=== PATIENT | male | born 1950 | race American Indian/Alaskan Native ===

== ENCOUNTER 2018-04-09 12:47 | Inpatient (IN) | payer MEDICARE ==
[2018-04-09] MEDS ORDERED: NACL 0.9% 1000 ML IV ONE (14:24)
--- NOTE | 2018-04-09 14:30 | Emergency Department Report ---
Blank Doc - Documentation Documentation: Patient is a 67-year-old black male who is presenting with cough productive of sputum that has streaks of blood. Patient states he occasionally will have completely bloody sputum. Patient states he has some mild shortness of breath and some discomfort when he breathes. Edson and is on blood thinners secondary to some issues with his liver. Patient has a low-grade fever and denies nausea vomiting or diarrhea.. Patient to be moved to a treatment room. Patient is tachycardic with fever and a pneumonia on his x-ray before does meet sepsis criteria. Patient is awaiting blood work to see if he has severe sepsis.
[2018-04-09] MEDS ORDERED: TYLENOL PO ONE (14:32)
--- NOTE | 2018-04-09 14:48 | XRay Report ---
ROUTINE CHEST, TWO VIEWS: HISTORY: Persistent cough with blood and mucus. There is an ill-defined opacity in the lingula measuring approximately 5 cm in diameter. The etiology of this is unclear. This could represent an infiltrate or possibly a mass. The remainder of the lungs are clear. Normal heart and mediastinal structures. The bony thorax is grossly intact. IMPRESSION: Lingular opacity as described. If no fever is present, further evaluation with CT chest with contrast is recommended.
[2018-04-09 14:57] LABS: INR 1.1 (0.87-1.13); Partial Thromboplastin Time 26.4 Sec. (24.2-36.6)
[2018-04-09 15:04] LABS: BUN/Creatinine Ratio 10; Blood Urea Nitrogen 5 mg/dL (9-20); Calcium 8.9 mg/dL (8.4-10.2); Hemolysis Index 8
[2018-04-09 15:26] LABS: Hematocrit 34.2 % (35.5-45.6); Hemoglobin 11.1 gm/dl (11.8-15.2); Mean Corpuscular HGB Conc 32 % (32-34); Mean Corpuscular Volume 95 fl (84-94); Platelet Count 218 K/mm3 (140-440); Red Blood Count 3.61 M/mm3 (3.65-5.03); Red Cell Distribution Width 14.7 % (13.2-15.2)
[2018-04-09] MEDS: ROCEPHIN/NS 2 GM/100 ML 2 GM/100 ML BAG IV SCH (15:32)
--- NOTE | 2018-04-09 15:34 | Emergency Department Report ---
- General Chief Complaint: Upper Respiratory Infection Stated Complaint: COUGHING UP BLOOD Time Seen by Provider: 04/09/18 14:19 Source: patient, old records reviewed (no previous med record) Mode of arrival: Ambulatory Limitations: No Limitations - History of Present Illness Initial Comments: 67-year-old male with a past medical history of hypertension and liver cirrhosis secondary to hepatitis C presents to the hospital complains of persisting cough with hemoptysis for the past 7 days. Sputum is blood streaks and occasionally grossly bloody. Intermittent fever and shortness of breath reported. Patient states he also has intermittent epistaxis. Patient is taking unknown meds for his liver disease. He is typically followed at [place]. Pain equals 0. - Related Data Allergies Allergy/AdvReac Type Severity Reaction Status Date / Time No Known Allergies Allergy Unverified 04/09/18 13:01 ED Review of Systems ROS: Stated complaint: COUGHING UP BLOOD Other details as noted in HPI Comment: All other systems reviewed and negative ED Past Medical Hx - Past Medical History Hx Hypertension: Yes Additional medical history: cirrohsis, hep c - Surgical History Additional Surgical History: right lower lobe? pt not sure - Social History Smoking Status: Current Every Day Smoker Substance Use Type: Alcohol ED Physical Exam - General Limitations: No Limitations - Other Other exam information: General: No limitations, patient is alert in no acute distress Head exam: Atraumatic, normocephalic Eyes exam: Normal appearance ENT: Moist mucous membrane Neck exam: Normal inspection, full range of motion, no meningismus nontender Respiratory exam: Clear to auscultation bilateral, no wheezes, rales, crackles Cardiovascular: Tachycardic regular rhythm Abdomen: Soft, nondistended, and nontender, with normal bowel sounds, no rebound, or guarding Extremity: Full range of motion normal inspection no deformity Back: Normal Inspection, full range of motion, no tenderness Neurologic: Alert, oriented x3, cranial nerves intact, no motor or sensory deficit Psychiatric: normal affect, normal mood Skin: Warm, dry, intact ED Course Vital Signs 04/09/18 04/09/18 12:58 15:33 Temperature 100.1 F H 98.4 F Pulse Rate 127 H 91 H Respiratory 20 23 Rate Blood Pressure 145/92 Blood Pressure 138/66 [Right] O2 Sat by Pulse 97 98 Oximetry ED Medical Decision Making - Lab Data Result diagrams: 04/09/18 14:38 04/09/18 14:38 Lab Results 04/09/18 04/09/18 04/09/18 Range/Units 14:38 14:38 14:38 WBC 12.3 H (4.5-11.0) K/mm3 RBC 3.61 L (3.65-5.03) M/mm3 Hgb 11.1 L (11.8-15.2) gm/dl Hct 34.2 L (35.5-45.6) % MCV 95 H (84-94) fl MCH 31 (28-32) pg MCHC 32 (32-34) % RDW 14.7 (13.2-15.2) % Plt Count 218 (140-440) K/mm3 PT 14.6 (12.2-14.9) Sec. INR 1.10 (0.87-1.13) APTT 26.4 (24.2-36.6) Sec. VBG pH (7.320-7.420) Sodium 135 L (137-145) mmol/L Potassium 3.6 (3.6-5.0) mmol/L Chloride 98.9 (98-107) mmol/L Carbon Dioxide 23 (22-30) mmol/L Anion Gap 17 mmol/L BUN 5 L (9-20) mg/dL Creatinine 0.5 L (0.8-1.5) mg/dL Estimated GFR > 60 ml/min BUN/Creatinine Ratio 10 % Glucose 116 H (75-100) mg/dL Lactic Acid (0.7-2.0) mmol/L Calcium 8.9 (8.4-10.2) mg/dL 04/09/18 04/09/18 Range/Units 14:38 14:38 WBC (4.5-11.0) K/mm3 RBC (3.65-5.03) M/mm3 Hgb (11.8-15.2) gm/dl Hct (35.5-45.6) % MCV (84-94) fl MCH (28-32) pg MCHC (32-34) % RDW (13.2-15.2) % Plt Count (140-440) K/mm3 PT (12.2-14.9) Sec. INR (0.87-1.13) APTT (24.2-36.6) Sec. VBG pH 7.376 (7.320-7.420) Sodium (137-145) mmol/L Potassium (3.6-5.0) mmol/L Chloride (98-107) mmol/L Carbon Dioxide (22-30) mmol/L Anion Gap mmol/L BUN (9-20) mg/dL Creatinine (0.8-1.5) mg/dL Estimated GFR ml/min BUN/Creatinine Ratio % Glucose (75-100) mg/dL Lactic Acid 1.70 (0.7-2.0) mmol/L Calcium (8.4-10.2) mg/dL - EKG Data -: EKG Interpreted by In EKG shows normal: sinus rhythm, axis (qrs 29), QRS complexes (qrsd 89), ST-T waves (no stemi/t inv, multiple pvc's) Rate: normal (93) - EKG Data When compared to previous EKG there are: previous EKG unavailable - Radiology Data Radiology results: report reviewed ROUTINE CHEST, TWO VIEWS: HISTORY: Persistent cough with blood and mucus. There is an ill-defined opacity in the lingula measuring approximately 5 cm in diameter. The etiology of this is unclear. This could represent an infiltrate or possibly a mass. The remainder of the lungs are clear. Normal heart and mediastinal structures. The bony thorax is grossly intact. IMPRESSION: Lingular opacity as described. If no fever is present, further evaluation with CT chest with contrast is recommended. - Medical Decision Making Patient had cultures performed and pending, 30 mL per KG bolus of normal saline, and Rocephin and azithromycin given for pneumonia with associated sepsis. Patient will be admitted to the hospital for further evaluation. Case discussed with hospitalist Dr. Angeles - Differential Diagnosis sepsis, pneumonia, bronchitis, cancer Critical Care Time: No Critical care attestation.: If time is entered above; I have spent that time in minutes in the direct care of this critically ill patient, excluding procedure time. ED Disposition Clinical Impression: Cirrhosis, Hx of hepatitis C, Hemoptysis, Sepsis Pneumonia Qualifiers: Laterality: left Disposition: DC-09 OP ADMIT IP TO THIS HOSP Is pt being admited?: Yes Referrals: PRIMARY CARE,MD [Primary Care Provider] - 3-5 Days Time of Disposition: 15:36 (Dr Angeles/hosp)
[2018-04-09] MEDS: ZITHROMAX 500 MG in NACL 0.9% 250ML 250 ML IV SCH (16:55)
[2018-04-09] MEDS ORDERED: SODIUM CHLORIDE FLUSH SYRINGE 10 ML IV PRN (22:12)
[2018-04-09] MEDS ORDERED: TYLENOL PO PRN (22:12)
[2018-04-09] MEDS ORDERED: PERCOCET 5/325 PO PRN (22:12)
[2018-04-09] MEDS ORDERED: ZOFRAN IV PRN (22:12)
[2018-04-09] MEDS ORDERED: DILAUDID IV PRN (22:12)
[2018-04-09] MEDS ORDERED: RIBAVIRIN 200 MG PO SCH (22:15)
[2018-04-10 05:51] LABS: Basophils % (Auto) 0.2 % (0.0-1.8); Eosinophils % (Auto) 0.2 % (0.0-4.3); Hematocrit 30.8 % (35.5-45.6); Hemoglobin 10.1 gm/dl (11.8-15.2); Lymphocytes # (Auto) 0.7 K/mm3 (1.2-5.4); Lymphocytes % (Auto) 6.4 % (13.4-35.0); Mean Corpuscular HGB Conc 33 % (32-34); Mean Corpuscular Volume 94 fl (84-94); Monocytes # (Auto) 1.3 K/mm3 (0.0-0.8); Monocytes % (Auto) 12.8 % (0.0-7.3); Platelet Count 191 K/mm3 (140-440); Red Blood Count 3.26 M/mm3 (3.65-5.03); Red Cell Distribution Width 14.6 % (13.2-15.2)
[2018-04-10 06:16] LABS: Alanine Aminotransferase 9 units/L (7-56); Albumin 3.1 g/dL (3.9-5); BUN/Creatinine Ratio 12; Blood Urea Nitrogen 6 mg/dL (9-20); Calcium 8.6 mg/dL (8.4-10.2); Hemolysis Index 3
--- NOTE | 2018-04-10 06:44 | Event Note ---
Date: 04/09/18 See H/p in reports L lingular PNA Hep C on Treatment
[2018-04-10] MEDS ORDERED: MAGNESIUM SULFATE 2GM/50ML 2 GM/50 ML BAG IV ONE (07:00)
--- NOTE | 2018-04-10 07:28 | History and Physical Report ---
CHIEF COMPLAINT: 1. Cough for 7 days. 2. Blood in the sputum off and on for 7 days. HISTORY OF PRESENT ILLNESS: A 67-year-old male with history of cirrhosis and hep C, on treatment for hep C, comes in for cough and hemoptysis for 7 days. Blood streaks occasionally. Not gross amount of blood. Small amounts of blood in the cough. The patient is taking Harvoni for hepatitis C, ____, follows at [place]. PAST MEDICAL HISTORY: As mentioned, hypertension, cirrhosis, and hepatitis C. PAST SURGICAL HISTORY: Some right lower lung surgery. SOCIAL HISTORY: Smokes a pack a day. Alcohol on a near regular basis. FAMILY HISTORY: Hypertension. REVIEW OF SYSTEMS: Significant for coughing up streaks of blood, fever, some shortness of breath. Otherwise, review of systems negative. PHYSICAL EXAMINATION: GENERAL: Elderly male, cooperative during examination. VITAL SIGNS: Temperature 101.5 and 100.1, pulse is 127, blood pressure 145/92. HEENT: Unremarkable. Pupils equal and reactive. NECK: Supple, no lymphadenopathy, no thyromegaly. LUNGS: Clear to auscultation and percussion. Scattered rhonchi bilaterally. CARDIOVASCULAR SYSTEM: S1, S2 heard. No gallop, no murmur, no rub. Apical impulse in left 5th intercostal space in midclavicular line. ABDOMEN: Soft and benign. No hepatosplenomegaly. No guarding, no rigidity. Hernial orifices are normal. ABDOMEN: Slightly distended. Possible ascites. EXTREMITIES: No pedal edema. CENTRAL NERVOUS SYSTEM: Alert and oriented x 4, nonfocal exam. LABORATORY DATA: Significant for white count of 12,300. H and H is 11.1 and 34.2. Platelet count is 218,000. Sodium is 135, BUN and creatinine is 5 and 0.5. Magnesium is 1.5. Albumin is 3.1. DIAGNOSTIC DATA: Chest x-ray shows lingular opacity. CT of the abdomen was not done. ASSESSMENT AND PLAN: 1. Left lingular pneumonia. The patient was initiated on ceftriaxone and azithromycin. Also, nebulizer treatments to be continued. The hemoptysis is mild. Pulmonary consulted. 2. Hepatitis C, treated with Harvoni. The patient uses own medications. Also, the patient on ribavirin and to continue the same. 3. Hypomagnesemia, supplemented. 4. Hypertension. The patient not on any antihypertensives. 5. Anemia, mild. 6. Hyponatremia, mild. 7. Deep venous thrombosis prophylaxis, Lovenox was not initiated because of the hemoptysis. Only sequential compression devices. Famotidine for gastrointestinal prophylaxis initiated. JOB# [id number] CARMEN/NICOLAS TAMAYOD
[2018-04-10] MEDS: PEPCID IV SCH ×2 (09:00→21:11)
[2018-04-10] MEDS: SODIUM CHLORIDE FLUSH SYRINGE 10 ML IV SCH ×2 (09:00→21:12)
[2018-04-10] MEDS ORDERED: K-DUR PO ONE (09:00)
--- NOTE | 2018-04-10 09:25 | Consultation ---
History of Present Illness Consult date: 04/10/18 Requesting physician: PEDRO FERNÁNDEZ Reason for consult: other (Hemoptysis, Left lung pneumonia) History of present illness: 67-year-old male with a past medical history of hypertension and liver cirrhosis secondary to hepatitis C presents to the hospital complains of persisting cough with hemoptysis for the past 7 days. Sputum is blood streaks and occasionally grossly bloody. Intermittent fever and shortness of breath reported. Patient states he also has intermittent epistaxis. Patient is taking unknown meds for his liver disease. He is typically followed at [place]. On presentation a CXR was done and there is a lingular infiltrate. I have been consulted for hemoptysis and an abnormal CXR. Patient was seen and examined. Vitals, labs, medications, chart and imaging were reviewed. He states he smokes daily 4-6 cigarettes and has been smoking for over 20 years. He denies any night sweats Past History Past Medical History: hepatitis (C on therapy), liver disease Social history: lives with family, smoking, alcohol abuse, full code Family history: no significant family history Medications and Allergies Allergies Allergy/AdvReac Type Severity Reaction Status Date / Time No Known Allergies Allergy Unverified 04/09/18 13:01 Home Medications Medication Instructions Recorded Confirmed Last Taken Type Harvoni 90-400 mg Tablet 90 mg PO DAILY 04/09/18 04/09/18 04/06/18 History Ribavirin 200 mg PO BID 04/09/18 04/09/18 04/06/18 08:00 History Active Meds: Active Medications Acetaminophen (Tylenol) 650 mg PO Q4H PRN PRN Reason: Pain MILD(1-3)/Fever >100.5/TENA Albuterol/Ipratropium (Duoneb *Not For Prn Use*) 1 ampul IH QIDRT RAJ Famotidine (Pepcid) 20 mg IV BID RAJ Last Admin: 04/10/18 09:00 Dose: 20 mg Documented by: Hydromorphone HCl (Dilaudid) 0.5 mg IV Q3H PRN PRN Reason: Pain , Severe (7-10) Azithromycin 500 mg/ Sodium (Chloride) 250 mls @ 250 mls/hr IV Q24HR RAJ; Emily col Last Admin: 04/09/18 16:55 Dose: 250 mls/hr Documented by: Ceftriaxone Sodium (Rocephin/Ns 2 Gm/100 Ml) 2 gm in 100 mls @ 200 mls/hr IV Q24HR [facility]; Protocol Last Admin: 04/09/18 15:32 Dose: 200 mls/hr Documented by: Miscellaneous Medication (Harvoni 90-400 Mg Tablet) 90 mg PO DAILY [facility] Miscellaneous Medication (Ribavirin) 200 mg PO BID [facility] Ondansetron HCl (Zofran) 4 mg IV Q8H PRN PRN Reason: Nausea And Vomiting Oxycodone/Acetaminophen (Percocet 5/325) 1 tab PO Q6H PRN PRN Reason: Pain, Moderate (4-6) Sodium Chloride (Sodium Chloride Flush Syringe 10 Ml) 10 ml IV BID RAJ Sodium Chloride (Sodium Chloride Flush Syringe 10 Ml) 10 ml IV PRN PRN PRN Reason: LINE FLUSH Review of Systems Constitutional: fever, chills, no sweats, no night sweats, no anorexia, no fatigue Cardiovascular: no chest pain, no orthopnea, no palpitations, no edema, no syncope, no lightheadedness, no shortness of breath Respiratory: cough, cough with sputum, hemoptysis, no shortness of breath, no dyspnea on exertion Gastrointestinal: no abdominal pain, no nausea, no vomiting, no diarrhea, no change in bowel habits Genitourinary Male: no dysuria, no hematuria, no flank pain, no urinary frequency, no urinary hesitancy, no incontinence Physical Examination Vital signs: Vital Signs Temp Pulse Resp BP Pulse Ox 100.1 F H 127 H 20 145/92 97 04/09/18 12:58 04/09/18 12:58 04/09/18 12:58 04/09/18 12:58 04/09/18 12:58 General: Patient is alert in no acute distress Head exam: Atraumatic, normocephalic Eyes exam: Normal appearance ENT: Moist mucous membrane Neck exam: Normal inspection, full range of motion, Respiratory exam: Clear to auscultation bilateral, no wheezes, rales, crackles Cardiovascular: Tachycardia,RRR, S1,S2, no murmurs, gallops or rubs Abdomen: Soft, non distended, and non tender, with normal bowel sounds, no rebound, or guarding Extremity: Full range of motion normal inspection no deformity Back: Normal Inspection, full range of motion, no tenderness Neurologic: Alert, oriented x3, cranial nerves intact, no motor or sensory deficit Psychiatric: normal affect, normal mood Skin: Warm, dry, intact Results - Laboratory Findings CBC and BMP: 04/10/18 05:08 04/11/18 05:02 PT/INR, D-dimer PT 14.6 Sec. (12.2-14.9) 04/09/18 14:38 INR 1.10 (0.87-1.13) 04/09/18 14:38 Abnormal lab findings: Abnormal Labs 04/09/18 04/09/18 04/09/18 14:38 14:38 14:38 WBC 12.3 H RBC 3.61 L Hgb 11.1 L Hct 34.2 L MCV 95 H Lymph % (Auto) [place] % (Auto) Lymph # [place] # Seg Neutrophils % Seg Neutrophils # Sodium 135 L Potassium Carbon Dioxide BUN 5 L Creatinine 0.5 L Glucose 116 H Magnesium 1.50 L Albumin 04/10/18 04/10/18 05:08 05:08 WBC RBC 3.26 L Hgb 10.1 L Hct 30.8 L MCV Lymph % (Auto) 6.4 L [place] % (Auto) 12.8 H Lymph # 0.7 L [place] # 1.3 H Seg Neutrophils % 80.4 H Seg Neutrophils # 8.4 H Sodium Potassium 3.3 L Carbon Dioxide 21 L BUN 6 L Creatinine 0.5 L Glucose 128 H Magnesium Albumin 3.1 L - Diagnostic Findings Chest x-ray: image reviewed (Lingular infitrate , rather dense consolidation) Assessment and Plan Left lingular infiltrate Hemoptysis, cannot rule out malignancy Tobacco abuse disorder/Nicotine dependence History of hepatitis C Anemia, likely chronic/ABLA Hyponatremia mild With his tobacco use disorder and a lingular infiltrate, I need to r/o possibility of lung cancer. Will get a CT chest to further characterize the lesion. IIf the lesion on CT imaging is suspicious for malignancy, he will need tissue biopsy IN the interim, I agree with treatment for pneumonia- need to cover for anaerobes. If on CT chest, there is CT scan findings suggestive of pulmonary HTN, will need 2D echocardiogram, as hemoptysis can be a feature of portopulmonary HTN and hepatopulmonary syndrome Clinically he does have features of right heart failure. -Nicotine withdrawal precautions -Monitor Hand H -Supplemental oxygen to keep O 2 sats>90% -Aspiration precautions -Smoking cessation counselling done at the bedside for greater than 7 minutes. The mortality and morbidity associated with tobacco abuse was discussed with the patient. Thank you for this consult. Care plan was discussed with the patient. Please do not hesitate to call with questions or concerns
[2018-04-10] MEDS ORDERED: HARVONI PO SCH (10:00)
[2018-04-10] MEDS: DUONEB *Not for PRN Use IH SCH ×4 (10:20→20:37)
[2018-04-10] MEDS: ROCEPHIN/NS 2 GM/100 ML 2 GM/100 ML BAG IV SCH (10:36)
[2018-04-10] MEDS: ZITHROMAX 500 MG in NACL 0.9% 250ML 250 ML IV SCH (11:00)
--- NOTE | 2018-04-10 15:29 | Progress Note ---
Assessment and Plan Left lingular pneumonia - - We'll continue to monitor the patient to medicine - Will provide scheduled nebulizer breathing treatment and as needed - Place on empiric antibiotic - will get sputum culture, - Provide supplemental oxygen to keep oxygen saturation above 92% as needed Hemoptysis, cannot rule out malignancy - Pulmonary consulted, will follow sputum culture, was obtained CT scan of the chest with and without contrast History of hepatitis C being treated with hervoni Hypomagnesemia, supplemented Hypertension, not on any medications at home - Monitor BP, add medications as needed Anemia, likely chronic and due to blood loss - Continue to monitor H&H Hyponatremia mild, continue gentle hydration with IV fluid Tobacco/alcohol abuse, counseled for cessation, monitor for withdrawal DVT prophylaxis with SCD GI prophylaxis with PPI Brief history: 67-year-old male with history of hepatitis C presented to the hospital with complaint of 1 week of cough and bloody sputum. Chest x-ray in the ER showed lingular pneumonia, admitted to the hospital for further evaluation and management. Subjective Date of service: 04/10/18 Interval history: Patient seen and examined. Medical records and medication list reviewed. No acute event overnight noted by the RN. Patient denies any chest pain or difficulty breathing. Patient is tolerating diet. Continue to cough out blood Discussed plan of care at bedside with patient. Objective - Exam Narrative Exam: GENERAL: well-developed and well-nourished -[place] male lying on bed appeared to be in no discomfort. HEENT: Normocephalic. Atraumatic. No conjunctival congestion or icterus. Patient has moist mucous membranes. NECK: Supple. Trachea midline. CHEST/LUNGS: Clear to auscultated bilaterally, breathing nonlabored. No wheezes crackles or rhonchi. HEART/CARDIOVASCULAR: Regular in rate and rhythm. S1 and S2 positive. ABDOMEN: Abdomen is soft, nontender. Patient has normal bowel sounds. SKIN: There is no rash. Warm and dry. NEURO: No focal motor deficit. Follows command. MUSCULOSKELETAL: No joint effusion or tenderness. EXTRIMITY: No edema, no cyanosis or clubbing. PSYCH: Cooperative. - Constitutional Vitals: Vital Signs - 12hr 04/10/18 04/10/18 04/10/18 07:44 07:45 08:00 Temperature 99.4 F Pulse Rate 94 H 90 Pulse Rate [ 93 H Anterior Bilateral Throughout] Respiratory 18 Rate Respiratory 18 Rate [Anterior Bilateral Throughout] Blood Pressure 107/63 O2 Sat by Pulse 93 94 Oximetry 04/10/18 04/10/18 12:44 13:23 Temperature 101.1 F H Pulse Rate 107 H Pulse Rate [ 93 H Anterior Bilateral Throughout] Respiratory 18 Rate Respiratory 18 Rate [Anterior Bilateral Throughout] Blood Pressure 137/66 O2 Sat by Pulse 93 Oximetry - Labs CBC & Chem 7: 04/10/18 05:08 04/11/18 05:02 Labs: Abnormal lab results 04/09/18 04/10/18 04/10/18 Range/Units 14:38 05:08 05:08 RBC 3.26 L (3.65-5.03) M/mm3 Hgb 10.1 L (11.8-15.2) gm/dl Hct 30.8 L (35.5-45.6) % Lymph % (Auto) 6.4 L (13.4-35.0) % [place] % (Auto) 12.8 H (0.0-7.3) % Lymph # 0.7 L (1.2-5.4) K/mm3 [place] # 1.3 H (0.0-0.8) K/mm3 Seg Neutrophils % 80.4 H (40.0-70.0) % Seg Neutrophils # 8.4 H (1.8-7.7) K/mm3 Potassium 3.3 L (3.6-5.0) mmol/L Carbon Dioxide 21 L (22-30) mmol/L BUN 6 L (9-20) mg/dL Creatinine 0.5 L (0.8-1.5) mg/dL Glucose 128 H (75-100) mg/dL Magnesium 1.50 L (1.7-2.3) mg/dL Albumin 3.1 L (3.9-5) g/dL
[2018-04-11 06:19] LABS: BUN/Creatinine Ratio 15; Blood Urea Nitrogen 6 mg/dL (9-20); Calcium 8.1 mg/dL (8.4-10.2); Hemolysis Index 19
--- NOTE | 2018-04-11 08:56 | Progress Note ---
Assessment and Plan Left lingular infiltrate Hemoptysis, cannot rule out malignancy Tobacco abuse disorder/Nicotine dependence History of hepatitis C Anemia, likely chronic/ABLA Hyponatremia mild -Follow up on CT chest -Empiric antibiotics, follow cultures and adjust antibiotic therapy -Bronchodilators prn -Nicotine withdrawal precautions -Monitor closely for possibility of massive hemoptysis If he has sub-massive or massive hemoptysis, may need airway protection and IR for embolization -Supplemental oxygen to keep O2 sats>90% -Aspiration precautions -Smoking cessation counselling done at the bedside ( ongoing) -SCDs for VTE prophylaxis -Influenza and pneumonia vaccination per protocol Subjective Date of service: 04/11/18 Principal diagnosis: Hemoptysis, Lingular infitrate, Pneumonia Interval history: Follow up: Lingular infiltrate, Hemoptysis, Tobacco abuse disorder Seen and examined. Vitals, labs, medications, chart reviewed. No acute overnight events reported States he has not had any further episodes of hemoptysis today. No chest pain, no shortness of breath No fevers or chills. Appetite is "good", Objective - Exam Narrative Exam: GENERAL: well-developed and well-nourished -[place] male lying on bed , in no respiraotry distress HEENT: Normocephalic. Atraumatic. No conjunctival congestion or icterus. Patient has moist mucous membranes. NECK: Supple. Trachea midline. CHEST/LUNGS: Clear to auscultated bilaterally, No wheeze, no rhonchi HEART/CARDIOVASCULAR: Regular in rate and rhythm. S1 and S2 positive. ABDOMEN: Abdomen is soft, non tender. Patient has normal bowel sounds. SKIN: There is no rash. Warm and dry. NEURO: No focal motor deficit. MUSCULOSKELETAL: No joint effusion or tenderness. EXTRIMITY: No edema, no cyanosis or clubbing. PSYCH: Cooperative. Vital Signs - 12hr 04/11/18 04/11/18 01:59 07:39 Temperature 99.6 F 98.5 F Pulse Rate 92 H Respiratory 18 18 Rate Blood Pressure 144/77 122/96 O2 Sat by Pulse 96 Oximetry CBC and BMP: 04/10/18 05:08 04/11/18 05:02 ABG, PT/INR, D-dimer: PT/INR, D-dimer PT 14.6 Sec. (12.2-14.9) 04/09/18 14:38 INR 1.10 (0.87-1.13) 04/09/18 14:38 Abnormal lab findings: Abnormal Labs 04/09/18 04/09/18 04/09/18 14:38 14:38 14:38 WBC 12.3 H RBC 3.61 L Hgb 11.1 L Hct 34.2 L MCV 95 H Lymph % (Auto) [place] % (Auto) Lymph # [place] # Seg Neutrophils % Seg Neutrophils # Sodium 135 L Potassium Carbon Dioxide BUN 5 L Creatinine 0.5 L Glucose 116 H Calcium Magnesium 1.50 L Albumin 04/10/18 04/10/18 04/11/18 05:08 05:08 05:02 WBC RBC 3.26 L Hgb 10.1 L Hct 30.8 L MCV Lymph % (Auto) 6.4 L [place] % (Auto) 12.8 H Lymph # 0.7 L [place] # 1.3 H Seg Neutrophils % 80.4 H Seg Neutrophils # 8.4 H Sodium 136 L Potassium 3.3 L 3.5 L Carbon Dioxide 21 L 20 L BUN 6 L 6 L Creatinine 0.5 L 0.4 L Glucose 128 H 107 H Calcium 8.1 L Magnesium Albumin 3.1 L
[2018-04-11] MEDS: DUONEB *Not for PRN Use IH SCH ×4 (09:04→20:05)
[2018-04-11] MEDS: SODIUM CHLORIDE FLUSH SYRINGE 10 ML IV SCH ×2 (10:00→21:00)
[2018-04-11] MEDS: ROCEPHIN/NS 2 GM/100 ML 2 GM/100 ML BAG IV SCH (10:15)
[2018-04-11] MEDS: PEPCID IV SCH ×2 (10:16→21:00)
[2018-04-11] MEDS: ZITHROMAX 500 MG in NACL 0.9% 250ML 250 ML IV SCH (10:55)
--- NOTE | 2018-04-11 13:49 | Cat Scan Report ---
FINAL REPORT EXAM: CT CHEST WO/W CON HISTORY: Hemoptysis, left lung mass COMPARISON: None. TECHNIQUE: Multiple contiguous axial images were obtained through the chest before and after adminis tration of IV contrast. Reformatted sagittal and coronal images were available for review. FINDINGS: Medical devices: None. Thyroid: Normal. Lymph nodes: There are scattered subcentimeter lymph nodes in the pretracheal and prevascular areas o f the mediastinum. There is unenlarged lymph node in the subcarinal region measuring up to 2 centimet ers in short axis. Vasculature: Normal caliber of the thoracic aorta with a conventional branching pattern of the aortic arch. Scattered atherosclerotic calcifications. Normal caliber of the pulmonary artery. Heart: Normal heart size. Other mediastinal structures: Normal. Lung parenchyma: There is a masslike opacity in the lingula measuring approximately 5 x 6.2 x 6.6 khoa timeters (transverse by AP by craniocaudal dimensions). There is surrounding ground-glass opacity. Th ere are at least 2 foci of internal air concerning for cavitation. There are also areas of decreased attenuation suggestive of necrosis on post-contrast imaging, there is a focal extravasation of contra st measuring approximately 9 millimeters in size (series 5, image 71 Airways: Patent. No bronchiectasis. Pleura: Small left pleural effusion. Chest wall and spine: No suspicious osseous lesions. No acute fracture or dislocation. The ribs adjac ent to the abnormality of the lingula are normal in morphology without evidence of cortical erosion. Upper Abdomen: No acute abnormality. IMPRESSION: 5 x 6.2 x 6.6 centimeter masslike opacity in the lingula, with internal areas of possible cavitation and a focus of active extravasation of contrast concerning for hemorrhage. Differential diagnosis inc ludes malignancy, atypical infections such is tuberculosis or fungal infection, or vasculitis. Recomm end clinical correlation. A consult with interventional radiology may be helpful to evaluate the sour ce of the active extravasation.
--- NOTE | 2018-04-11 14:04 | Progress Note ---
Assessment and Plan Possible left lingular mass/malignancy - Noted chest CT results, pulmonary on the board May need possible biopsy to find the diagnosis Left lingular pneumonia - - We'll continue to monitor the patient to medicine - Will provide scheduled nebulizer breathing treatment and as needed - Place on empiric antibiotic - will follow sputum culture, - Provide supplemental oxygen to keep oxygen saturation above 92% as needed Hemoptysis, cannot rule out malignancy - Pulmonary consulted, will follow sputum culture, may need biopsy, we will await for pulmonary recommendation History of hepatitis C being treated with hervoni Hypomagnesemia, supplemented Hypertension, not on any medications at home - Monitor BP, add medications as needed Anemia, likely chronic and due to blood loss - Continue to monitor H&H Hyponatremia mild, continue gentle hydration with IV fluid Tobacco/alcohol abuse, counseled for cessation, monitor for withdrawal DVT prophylaxis with SCD GI prophylaxis with PPI Brief history: 67-year-old male with history of hepatitis C presented to the hospital with complaint of 1 week of cough and bloody sputum. Chest x-ray in the ER showed lingular pneumonia, admitted to the hospital for further evaluation and management. Subjective Date of service: 04/11/18 Interval history: Patient seen and examined. Medical records and medication list reviewed. No acute event overnight noted by the RN. Patient denies any chest pain or difficulty breathing. Patient is tolerating diet. Continue to cough out blood, but states that has slow down a bit today Discussed plan of care at bedside with patient. Objective - Exam Narrative Exam: GENERAL: well-developed and well-nourished -[place] male lying on bed appeared to be in no discomfort. HEENT: Normocephalic. Atraumatic. No conjunctival congestion or icterus. Patie nt has moist mucous membranes. NECK: Supple. Trachea midline. CHEST/LUNGS: Clear to auscultated bilaterally, breathing nonlabored. No wheezes crackles or rhonchi. HEART/CARDIOVASCULAR: Regular in rate and rhythm. S1 and S2 positive. ABDOMEN: Abdomen is soft, nontender. Patient has normal bowel sounds. SKIN: There is no rash. Warm and dry. NEURO: No focal motor deficit. Follows command. MUSCULOSKELETAL: No joint effusion or tenderness. EXTRIMITY: No edema, no cyanosis or clubbing. PSYCH: Cooperative. - Constitutional Vitals: Vital Signs - 12hr 04/11/18 04/11/18 04/11/18 07:39 09:04 09:19 Temperature 98.5 F Pulse Rate 92 H Pulse Rate [ 86 92 H Anterior Bilateral Throughout] Pulse Rate [ Right From Monitor] Respiratory 18 Rate Respiratory 20 18 Rate [Anterior Bilateral Throughout] Blood Pressure 122/96 O2 Sat by Pulse 96 Oximetry 04/11/18 10:00 Temperature Pulse Rate Pulse Rate [ Anterior Bilateral Throughout] Pulse Rate [ 92 H Right From Monitor] Respiratory 18 Rate Respiratory Rate [Anterior Bilateral Throughout] Blood Pressure O2 Sat by Pulse Oximetry - Labs CBC & Chem 7: 04/10/18 05:08 04/11/18 05:02 Labs: Abnormal lab results 04/11/18 Range/Units 05:02 Sodium 136 L (137-145) mmol/L Potassium 3.5 L (3.6-5.0) mmol/L Carbon Dioxide 20 L (22-30) mmol/L BUN 6 L (9-20) mg/dL Creatinine 0.4 L (0.8-1.5) mg/dL Glucose 107 H (75-100) mg/dL Calcium 8.1 L (8.4-10.2) mg/dL
[2018-04-12] MEDS: DUONEB *Not for PRN Use IH SCH ×3 (07:33→19:51)
[2018-04-12] MEDS: PEPCID PO SCH ×2 (10:27→23:23)
[2018-04-12] MEDS: ZITHROMAX 500 MG in NACL 0.9% 250ML 250 ML IV SCH (10:27)
[2018-04-12] MEDS: SODIUM CHLORIDE FLUSH SYRINGE 10 ML IV SCH ×2 (10:30→23:23)
[2018-04-12] MEDS: ROCEPHIN/NS 2 GM/100 ML 2 GM/100 ML BAG IV SCH (11:30)
[2018-04-12 13:12] LABS: Hematocrit 28.8 % (35.5-45.6); Hemoglobin 9.3 gm/dl (11.8-15.2)
--- NOTE | 2018-04-12 13:43 | Progress Note ---
Assessment and Plan Left lingular infiltrate Hemoptysis, cannot rule out malignancy Tobacco abuse disorder/Nicotine dependence History of hepatitis C Anemia, likely chronic/ABLA Hyponatremia mild (Lingula process equivocal and could represent non-malignant process however mediastinopathy is bothersome) - discussed possible bronchoscopy vs CT needle biopsy with him (subcarinal biopsy may also stage process if malignant) - continue empiric antibiotics and follow cultures - Bronchodilators prn - Nicotine withdrawal precautions (tobacco abstinence again strongly counselled) - Monitor closely for possibility of massive hemoptysis (If he has sub-massive or massive hemoptysis, may need airway protection and IR for embolization) - Supplemental oxygen as needed to keep O2 sats>90% - Aspiration precautions - Smoking cessation counselling done at the bedside (ongoing) - SCDs for VTE prophylaxis - Influenza and pneumonia vaccination per protocol ... will re-evaluate in am & prn Subjective Date of service: 04/12/18 Principal diagnosis: Left lingular Mass / Pneumonia; Hemoptysis; Tobacco abuse ; Hepatitis C Interval history: Patient is seen today for: Left lingular Mass; Hemoptysis; Tobacco abuse disorder/Nicotine dependence; History of hepatitis C Seen and examined at bedside; 24hour events reviewed; nursing and respiratory care staff consulted; no adverse overnight events reported to me; resting peacefully in bed; feels better but still with some left sided chest pain; no more hemoptysis Objective Vital Signs - 12hr 04/12/18 04/12/18 04/12/18 02:57 07:30 07:40 Temperature 98.8 F Pulse Rate 85 Pulse Rate [ 85 87 Anterior Bilateral Throughout] Respiratory 18 Rate Respiratory 18 18 Rate [Anterior Bilateral Throughout] Blood Pressure 119/73 O2 Sat by Pulse 95 Oximetry 04/12/18 04/12/18 08:00 09:08 Temperature 98.5 F Pulse Rate 96 H Pulse Rate [ Anterior Bilateral Throughout] Respiratory 20 Rate Respiratory Rate [Anterior Bilateral Throughout] Blood Pressure 120/65 O2 Sat by Pulse 91 97 Oximetry Constitutional: no acute distress, other (elderly looking AAM normocephalic and atraumatic with normal resp effort at rest) Eyes: non-icteric ENT: oropharynx moist Neck: supple, no lymphadenopathy, no JVD Effort: normal Ascultation: Bilateral: clear Percussion: Bilateral: not dull Cardiovascular: regular rate and rhythm Gastrointestinal: normoactive bowel sounds, soft, non-tender, non-distended Integumentary: normal Extremities: no cyanosis, no edema, pulses normal, no ischemia or petechiae Neurologic: normal mental status, non-focal exam, pupils equal and round, CN II- XII normal Psychiatric: mood appropriate, affect normal CBC and BMP: 04/13/18 02:53 04/13/18 02:53 ABG, PT/INR, D-dimer: PT/INR, D-dimer PT 14.6 Sec. (12.2-14.9) 04/09/18 14:38 INR 1.10 (0.87-1.13) 04/09/18 14:38 Abnormal lab findings: Abnormal Labs 04/09/18 04/09/18 04/09/18 14:38 14:38 14:38 WBC 12.3 H RBC 3.61 L Hgb 11.1 L Hct 34.2 L MCV 95 H Lymph % (Auto) [place] % (Auto) Lymph # [place] # Seg Neutrophils % Seg Neutrophils # Sodium 135 L Potassium Carbon Dioxide BUN 5 L Creatinine 0.5 L Glucose 116 H Calcium Magnesium 1.50 L Albumin 04/10/18 04/10/18 04/11/18 05:08 05:08 05:02 WBC RBC 3.26 L Hgb 10.1 L Hct 30.8 L MCV Lymph % (Auto) 6.4 L [place] % (Auto) 12.8 H Lymph # 0.7 L [place] # 1.3 H Seg Neutrophils % 80.4 H Seg Neutrophils # 8.4 H Sodium 136 L Potassium 3.3 L 3.5 L Carbon Dioxide 21 L 20 L BUN 6 L 6 L Creatinine 0.5 L 0.4 L Glucose 128 H 107 H Calcium 8.1 L Magnesium Albumin 3.1 L 04/12/18 12:34 WBC RBC Hgb 9.3 L Hct 28.8 L MCV Lymph % (Auto) [place] % (Auto) Lymph # [place] # Seg Neutrophils % Seg Neutrophils # Sodium Potassium Carbon Dioxide BUN Creatinine Glucose Calcium Magnesium Albumin CT scan - chest: image reviewed (lingula opacity more like consolidation / infil trate than mass but + mediastinopathy) Allied health notes reviewed: nursing
--- NOTE | 2018-04-12 15:20 | Progress Note ---
Assessment and Plan Possible left lingular mass/malignancy - Noted chest CT results, pulmonary on the board - May need possible biopsy/bronch to definite diagnosis - wait for pulmonary recommendation Left lingular pneumonia - We'll continue to monitor the patient to medicine - Will provide scheduled nebulizer breathing treatment and as needed - Place on empiric antibiotic - will follow sputum culture, - Provide supplemental oxygen to keep oxygen saturation above 92% as needed Hemoptysis, cannot rule out malignancy - Pulmonary consulted, will follow sputum culture, may need biopsy, we will await for pulmonary recommendation History of hepatitis C being treated with hervoni Hypomagnesemia, supplemented Hypertension, not on any medications at home - Monitor BP, add medications as needed Anemia, likely chronic and due to blood loss - Continue to monitor H&H Hyponatremia mild, continue gentle hydration with IV fluid Tobacco/alcohol abuse, counseled for cessation, monitor for withdrawal DVT prophylaxis with SCD GI prophylaxis with PPI Brief history: 67-year-old male with history of hepatitis C presented to the hospital with complaint of 1 week of cough and bloody sputum. Chest x-ray in the ER showed lingular pneumonia, admitted to the hospital for further evaluation and management. Radiological data: CXR: Lingular opacity as described. If no fever is present, further evaluation with CT chest with contrast is recommended. CT chest: 5 x 6.2 x 6.6 centimeter masslike opacity in the lingula, with internal areas of possible cavitation and a focus of active extravasation of contrast concerning for hemorrhage. Differential diagnosis includes malignancy, atypical infections such is tuberculosis or fungal infection, or vasculitis. Recommend clinical correlation. A consult with interventional radiology may be helpful to evaluate the source of the active extravasation. Subjective Date of service: 04/12/18 Principal diagnosis: Left lingular Mass / Pneumonia; Hemoptysis; Tobacco abuse ; Hepatitis C Interval history: Patient seen and examined. Medical records and medication list reviewed. No acute event overnight noted by the RN. Patient denies any chest pain or difficulty breathing. Patient is tolerating diet. Continue to cough out blood, but states that has slow down a bit today Discussed plan of care at bedside with patient. Objective - Constitutional Vitals: Vital Signs - 12hr 04/12/18 04/12/18 04/12/18 07:30 07:40 08:00 Temperature 98.5 F Pulse Rate 96 H Pulse Rate [ 85 87 Anterior Bilateral Throughout] Respiratory 20 Rate Respiratory 18 18 Rate [Anterior Bilateral Throughout] Blood Pressure 120/65 O2 Sat by Pulse 91 Oximetry 04/12/18 04/12/18 09:08 13:38 Temperature 98.4 F Pulse Rate 89 Pulse Rate [ Anterior Bilateral Throughout] Respiratory 20 Rate Respiratory Rate [Anterior Bilateral Throughout] Blood Pressure 124/68 O2 Sat by Pulse 97 96 Oximetry - Labs CBC & Chem 7: 04/13/18 02:53 04/13/18 02:53 Labs: Abnormal lab results 04/12/18 Range/Units 12:34 Hgb 9.3 L (11.8-15.2) gm/dl Hct 28.8 L (35.5-45.6) %
[2018-04-13 03:12] LABS: Hematocrit 26.2 % (35.5-45.6); Hemoglobin 8.5 gm/dl (11.8-15.2)
[2018-04-13 03:26] LABS: BUN/Creatinine Ratio 10; Blood Urea Nitrogen 5 mg/dL (9-20); Calcium 8.7 mg/dL (8.4-10.2); Hemolysis Index 6
[2018-04-13] MEDS: DUONEB *Not for PRN Use IH SCH ×3 (07:33→20:42)
[2018-04-13] MEDS: ZITHROMAX 500 MG in NACL 0.9% 250ML 250 ML IV SCH (10:26)
[2018-04-13] MEDS: ROCEPHIN/NS 2 GM/100 ML 2 GM/100 ML BAG IV SCH (10:27)
[2018-04-13] MEDS: PEPCID PO SCH ×2 (10:27→21:21)
[2018-04-13] MEDS: SODIUM CHLORIDE FLUSH SYRINGE 10 ML IV SCH ×2 (10:27→21:21)
--- NOTE | 2018-04-13 12:25 | Progress Note ---
Assessment and Plan Left lingular infiltrate Hemoptysis, cannot rule out malignancy Tobacco abuse disorder/Nicotine dependence History of hepatitis C Anemia, likely chronic/ABLA Hyponatremia mild (discussed need to evaluate for posssible bleeder before invasive biopsy) - will discuss case with IR tomorrow and come to a definitive plan - continue empiric antibiotics and follow cultures - Bronchodilators prn - Nicotine withdrawal precautions (tobacco abstinence again strongly counselled) - Monitor closely for possibility of massive hemoptysis - Supplemental oxygen as needed to keep O2 sats>90% - Aspiration precautions - Smoking cessation counselling done at the bedside (ongoing) - SCDs for VTE prophylaxis - Influenza and pneumonia vaccination per protocol ... will re-evaluate in am & prn Subjective Date of service: 04/13/18 Principal diagnosis: Left lingular Mass / Pneumonia; Hemoptysis; Tobacco abuse ; Hepatitis C Interval history: Patient is seen today for: Left lingular Mass; Hemoptysis; Tobacco abuse diso rder/Nicotine dependence; History of hepatitis C Seen and examined at bedside; 24hour events reviewed; nursing and respiratory care staff consulted; no adverse overnight events reported to me; resting peacefully in bed; some streaky hemoptysis; No chest pains or palpitations Objective Vital Signs - 12hr 04/13/18 02:00 Temperature 98.5 F Pulse Rate 85 Respiratory 18 Rate Blood Pressure 140/76 O2 Sat by Pulse 94 Oximetry Constitutional: no acute distress, other (elderly looking AAM normocephalic and atraumatic with normal resp effort at rest) Eyes: non-icteric ENT: oropharynx moist Neck: supple, no lymphadenopathy, no JVD Effort: normal Ascultation: Bilateral: clear Percussion: Bilateral: not dull Cardiovascular: regular rate and rhythm Gastrointestinal: normoactive bowel sounds, soft, non-tender, non-distended Integumentary: normal Extremities: no cyanosis, no edema, pulses normal, no ischemia or petechiae Neurologic: normal mental status, non-focal exam, pupils equal and round, CN II- XII normal Psychiatric: mood appropriate, affect normal CBC and BMP: 04/17/18 05:32 04/17/18 05:32 ABG, PT/INR, D-dimer: PT/INR, D-dimer PT 14.6 Sec. (12.2-14.9) 04/09/18 14:38 INR 1.10 (0.87-1.13) 04/09/18 14:38 Abnormal lab findings: Abnormal Labs 04/09/18 04/09/18 04/09/18 14:38 14:38 14:38 WBC 12.3 H RBC 3.61 L Hgb 11.1 L Hct 34.2 L MCV 95 H Lymph % (Auto) [place] % (Auto) Lymph # [place] # Seg Neutrophils % Seg Neutrophils # Sodium 135 L Potassium Carbon Dioxide BUN 5 L Creatinine 0.5 L Glucose 116 H Calcium Magnesium 1.50 L Albumin 04/10/18 04/10/18 04/11/18 05:08 05:08 05:02 WBC RBC 3.26 L Hgb 10.1 L Hct 30.8 L MCV Lymph % (Auto) 6.4 L [place] % (Auto) 12.8 H Lymph # 0.7 L [place] # 1.3 H Seg Neutrophils % 80.4 H Seg Neutrophils # 8.4 H Sodium 136 L Potassium 3.3 L 3.5 L Carbon Dioxide 21 L 20 L BUN 6 L 6 L Creatinine 0.5 L 0.4 L Glucose 128 H 107 H Calcium 8.1 L Magnesium Albumin 3.1 L 04/12/18 04/13/18 04/13/18 12:34 02:53 02:53 WBC RBC Hgb 9.3 L 8.5 L Hct 28.8 L 26.2 L MCV Lymph % (Auto) [place] % (Auto) Lymph # [place] # Seg Neutrophils % Seg Neutrophils # Sodium Potassium Carbon Dioxide BUN 5 L Creatinine 0.5 L Glucose Calcium Magnesium Albumin Allied health notes reviewed: nursing
--- NOTE | 2018-04-13 16:02 | Progress Note ---
Assessment and Plan Possible left lingular mass/malignancy - Noted chest CT results, pulmonary on the board - May need possible biopsy/bronch to definite diagnosis - wait for pulmonary recommendation Left lingular pneumonia - We'll continue to monitor the patient to medicine - Will provide scheduled nebulizer breathing treatment and as needed - cont on empiric antibiotic - will follow sputum culture, - Provide supplemental oxygen to keep oxygen saturation above 92% as needed Hemoptysis, cannot rule out malignancy - Pulmonary consulted, will follow sputum culture, may need biopsy, we will await for pulmonary recommendation History of hepatitis C being treated with hervoni Hypomagnesemia, supplemented Hypertension, not on any medications at home - Monitor BP, add medications as needed Anemia, likely chronic and due to blood loss - Continue to monitor H&H Hyponatremia mild, continue gentle hydration with IV fluid Tobacco/alcohol abuse, counseled for cessation, monitor for withdrawal DVT prophylaxis with SCD GI prophylaxis with PPI Brief history: 67-year-old male with history of hepatitis C presented to the hospital with complaint of 1 week of cough and bloody sputum. Chest x-ray in the ER showed lingular pneumonia, admitted to the hospital for further evaluation and management. Radiological data: CXR: Lingular opacity as described. If no fever is present, further evaluation with CT chest with contrast is recommended. CT chest: 5 x 6.2 x 6.6 centimeter masslike opacity in the lingula, with internal areas of possible cavitation and a focus of active extravasation of contrast concerning for hemorrhage. Differential diagnosis includes malignancy, atypical infections such is tuberculosis or fungal infection, or vasculitis. Recommend clinical correlation. A consult with interventional radiology may be helpful to evaluate the source of the active extravasation. Subjective Date of service: 04/13/18 Principal diagnosis: Left lingular Mass / Pneumonia; Hemoptysis; Tobacco abuse ; Hepatitis C Interval history: Patient seen and examined. Medical records and medication list reviewed. No acute event overnight noted by the RN. Patient denies any chest pain or difficulty breathing. Patient is tolerating diet. Continue to cough out blood, but states that has slow down now Discussed plan of care at bedside with patient. Objective - Constitutional Vitals: Vital Signs - 12hr 04/13/18 13:00 Temperature 98.8 F Pulse Rate 86 Respiratory 18 Rate Blood Pressure 125/77 O2 Sat by Pulse 96 Oximetry - Labs CBC & Chem 7: 04/14/18 02:34 04/13/18 02:53 Labs: Abnormal lab results 04/13/18 04/13/18 Range/Units 02:53 02:53 Hgb 8.5 L (11.8-15.2) gm/dl Hct 26.2 L (35.5-45.6) % BUN 5 L (9-20) mg/dL Creatinine 0.5 L (0.8-1.5) mg/dL
[2018-04-14 03:23] LABS: Hemoglobin 9.1 gm/dl (11.8-15.2)
[2018-04-14] MEDS ORDERED: DUONEB *Not for PRN Use IH ONE (08:20)
[2018-04-14] MEDS: DUONEB *Not for PRN Use IH SCH ×3 (08:20→21:25)
--- NOTE | 2018-04-14 09:48 | Event Note ---
Date: 04/14/18 On going hemoptysis, though improving. CT scan shows estravasation of contrast into the lingula infiltrate/mass. Will discuss with IR the possibility of angiography and emobilzation. Discussed with Dr. Castellanos
[2018-04-14] MEDS: ROCEPHIN/NS 2 GM/100 ML 2 GM/100 ML BAG IV SCH (10:19)
[2018-04-14] MEDS: SODIUM CHLORIDE FLUSH SYRINGE 10 ML IV SCH ×2 (10:19→22:03)
[2018-04-14] MEDS: RIBAVIRIN PO SCH ×2 (12:31→22:03)
[2018-04-14] MEDS: PEPCID PO SCH ×2 (12:31→22:02)
[2018-04-14] MEDS: HARVONI PO SCH (12:33)
--- NOTE | 2018-04-14 13:40 | Consultation ---
History of Present Illness - Reason for Consult Consult date: 04/14/18 hemoptosys - History of Present Illness Patient presents with a 7-10 day history of blood streaked sputum.. His hemoglobin is been stable since admission. He has not required any transfusions. 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 The patient has not undergone any instrumentation. He is satting 100% on room air Past History Past Medical History: hepatitis (C on therapy), liver disease Social history: lives with family, smoking, alcohol abuse, full code Family history: no significant family history Medications and Allergies Allergies Allergy/AdvReac Type Severity Reaction Status Date / Time No Known Allergies Allergy Unverified 04/09/18 13:01 Home Medications Medication Instructions Recorded Confirmed Last Taken Type Harvoni 90-400 mg Tablet 90 mg PO DAILY 04/09/18 04/09/18 04/06/18 History Ribavirin 200 mg PO BID 04/09/18 04/09/18 04/06/18 08:00 History Active Meds: Active Medications Acetaminophen (Tylenol) 650 mg PO Q4H PRN PRN Reason: Pain MILD(1-3)/Fever >100.5/TENA Last Admin: 04/10/18 14:11 Dose: 650 mg Documented by: Albuterol/Ipratropium (Duoneb *Not For Prn Use*) 1 ampul IH TIDRT [facility] Last Admin: 04/14/18 08:20 Dose: 1 ampul Documented by: Famotidine (Pepcid) 20 mg PO BID [facility] Last Admin: 04/14/18 12:31 Dose: 20 mg Documented by: Hydromorphone HCl (Dilaudid) 0.5 mg IV Q3H PRN PRN Reason: Pain , Severe (7-10) Ceftriaxone Sodium (Rocephin/Ns 2 Gm/100 Ml) 2 gm in 100 mls @ 200 mls/hr IV Q24HR [facility]; Protocol Last Admin: 04/14/18 10:19 Dose: 200 mls/hr Documented by: Ondansetron HCl (Zofran) 4 mg IV Q8H PRN PRN Reason: Nausea And Vomiting Last Admin: 04/11/18 02:43 Dose: 4 mg Documented by: Oxycodone/Acetaminophen (Percocet 5/325) 1 tab PO Q6H PRN PRN Reason: Pain, Moderate (4-6) Ribavirin (Ribavirin (Nf)) 200 mg PO BID [facility] Last Admin: 04/14/18 12:31 Dose: 200 mg Documented by: Sodium Chloride (Sodium Chloride Flush Syringe 10 Ml) 10 ml IV BID [facility] Last Admin: 04/14/18 10:19 Dose: 10 ml Documented by: Sodium Chloride (Sodium Chloride Flush Syringe 10 Ml) 10 ml IV PRN PRN PRN Reason: LINE FLUSH Review of Systems All systems: negative Exam - Constitutional Vitals: Temp Pulse Resp BP Pulse Ox 98.0 F 73 18 142/81 96 04/14/18 07:21 04/14/18 10:00 04/14/18 10:00 04/14/18 07:21 04/14/18 10:00 General appearance: Present: no acute distress - EENT Eyes: Present: EOM intact ENT: hearing intact - Neck Neck: Present: supple, normal ROM - Respiratory Respiratory effort: normal - Extremities Extremities: Full ROM - Abdominal General gastrointestinal: Present: deferred Male genitourinary: Present: deferred - Psychiatric Psychiatric: appropriate mood/affect, cooperative Results - Labs CBC & Chem 7: 04/14/18 02:34 04/13/18 02:53 Labs: Abnormal lab results 04/14/18 Range/Units 02:34 Hgb 9.1 L (11.8-15.2) gm/dl Hct 28.0 L (35.5-45.6) % - Imaging and Cardiology CT scan - chest: image reviewed Assessment and Plan The patient may need to undergo embolization to prevent recurrent bleeding. The CT with contrast was inadequate to show bronchial artery anatomy. We will obtain a CTA of the chest.
--- NOTE | 2018-04-14 15:33 | Progress Note ---
Assessment and Plan Possible left lingular mass/malignancy - Noted chest CT results, pulmonary on the board - May need possible biopsy/bronch to definite diagnosis - wait for pulmonary recommendation Left lingular pneumonia - We'll continue to monitor the patient to medicine - Will provide scheduled nebulizer breathing treatment and as needed - cont on empiric antibiotic - will follow sputum culture, - Provide supplemental oxygen to keep oxygen saturation above 92% as needed Hemoptysis, cannot rule out malignancy - Pulmonary consulted, recommended possible pulmonary artery embolization, CTA chest ordered History of hepatitis C being treated with hervoni Hypomagnesemia, supplemented Hypertension, not on any medications at home - Monitor BP, add medications as needed Anemia, likely chronic and due to blood loss - Continue to monitor H&H Hyponatremia mild, continue gentle hydration with IV fluid Tobacco/alcohol abuse, counseled for cessation, monitor for withdrawal DVT prophylaxis with SCD GI prophylaxis with PPI Brief history: 67-year-old male with history of hepatitis C presented to the hospital with complaint of 1 week of cough and bloody sputum. Chest x-ray in the ER showed lingular pneumonia, admitted to the hospital for further evaluation and management. Radiological data: CXR: Lingular opacity as described. If no fever is present, further evaluation with CT chest with contrast is recommended. CT chest: 5 x 6.2 x 6.6 centimeter masslike opacity in the lingula, with in ternal areas of possible cavitation and a focus of active extravasation of contrast concerning for hemorrhage. Differential diagnosis includes malignancy, atypical infections such is tuberculosis or fungal infection, or vasculitis. Recommend clinical correlation. A consult with interventional radiology may be helpful to evaluate the source of the active extravasation. Subjective Date of service: 04/14/18 Principal diagnosis: Left lingular Mass / Pneumonia; Hemoptysis; Tobacco abuse ; Hepatitis C Interval history: Patient seen and examined. Medical records and medication list reviewed. No acute event overnight noted by the RN. Patient denies any chest pain or difficulty breathing. Patient is tolerating diet. Continue to cough out small amount of blood, Discussed plan of care at bedside with patient. Daughter at bedside Objective - Exam Narrative Exam: GENERAL: well-developed and well-nourished -[place] male lying on bed appeared to be in no discomfort. HEENT: Normocephalic. Atraumatic. No conjunctival congestion or icterus. Patient has moist mucous membranes. NECK: Supple. Trachea midline. CHEST/LUNGS: Clear to auscultated bilaterally, breathing nonlabored. No wheezes crackles or rhonchi. HEART/CARDIOVASCULAR: Regular in rate and rhythm. S1 and S2 positive. ABDOMEN: Abdomen is soft, nontender. Patient has normal bowel sounds. SKIN: There is no rash. Warm and dry. NEURO: No focal motor deficit. Follows command. MUSCULOSKELETAL: No joint effusion or tenderness. EXTRIMITY: No edema, no cyanosis or clubbing. PSYCH: Cooperative. - Constitutional Vitals: Vital Signs - 12hr 04/14/18 04/14/18 04/14/18 07:21 08:00 08:21 Temperature 98.0 F Pulse Rate 74 Pulse Rate [ 72 73 Anterior Bilateral Throughout] Pulse Rate [ Right From Monitor] Respiratory 18 Rate Respiratory 18 19 Rate [Anterior Bilateral Throughout] Blood Pressure 142/81 O2 Sat by Pulse 96 Oximetry 04/14/18 04/14/18 04/14/18 10:00 14:00 14:14 Temperature Pulse Rate Pulse Rate [ 96 H 95 H Anterior Bilateral Throughout] Pulse Rate [ 73 Right From Monitor] Respiratory 18 Rate Respiratory 18 18 Rate [Anterior Bilateral Throughout] Blood Pressure O2 Sat by Pulse 96 Oximetry - Labs CBC & Chem 7: 04/14/18 02:34 04/13/18 02:53 Labs: Abnormal lab results 04/14/18 Range/Units 02:34 Hgb 9.1 L (11.8-15.2) gm/dl Hct 28.0 L (35.5-45.6) % - Imaging and cardiology Chest x-ray: report reviewed CT scan - chest: report reviewed
--- NOTE | 2018-04-14 18:35 | Progress Note ---
Assessment and Plan Patient alert, awake. resting on room air.O2 saturation 93%.No complaint of chest pain,shortness of breath . Still coughing small amount of blood.Patient has angio CT of chest. Based on that interventional radiology decide on pulmonary artery embolization. - Patient Problems (1) Hemoptysis Current Visit: Yes Status: Acute Plan to address problem: Still coughing up small amount of blood. After reviewing Angio CT of chest, interventional radiology decide on pulmonary vascular congestion. (2) Pneumonia Current Visit: Yes Status: Acute Qualifiers: Laterality: left Plan to address problem: Patient is on ceftrioxone. (3) Cirrhosis Current Visit: Yes Status: Acute Plan to address problem: Management as per primary care. (4) Hx of hepatitis C Current Visit: Yes Status: Acute Plan to address problem: Management as per primary care. Subjective Date of service: 04/14/18 Principal diagnosis: Left lingular Mass / Pneumonia; Hemoptysis; Tobacco abuse ; Hepatitis C Interval history: Patient alert, awake. resting on room air.O2 saturation 93%.No complaint of chest pain,shortness of breath . Still coughing small amount of blood.Patient has angio CT of chest. Based on that interventional radiology decide on pulmonary artery embolization. Objective Vital Signs - 12hr 04/14/18 04/14/18 04/14/18 07:21 08:00 08:21 Temperature 98.0 F Pulse Rate 74 Pulse Rate [ 72 73 Anterior Bilateral Throughout] Pulse Rate [ Right From Monitor] Respiratory 18 Rate Respiratory 18 19 Rate [Anterior Bilateral Throughout] Blood Pressure 142/81 O2 Sat by Pulse 96 Oximetry 04/14/18 04/14/18 04/14/18 10:00 14:00 14:14 Temperature Pulse Rate Pulse Rate [ 96 H 95 H Anterior Bilateral Throughout] Pulse Rate [ 73 Right From Monitor] Respiratory 18 Rate Respiratory 18 18 Rate [Anterior Bilateral Throughout] Blood Pressure O2 Sat by Pulse 96 Oximetry 04/14/18 14:22 Temperature 98.2 F Pulse Rate 94 H Pulse Rate [ Anterior Bilateral Throughout] Pulse Rate [ Right From Monitor] Respiratory 16 Rate Respiratory Rate [Anterior Bilateral Throughout] Blood Pressure 135/78 O2 Sat by Pulse 93 Oximetry Constitutional: no acute distress, alert, other (elderly looking AAM normocephalic and atraumatic with normal resp effort at rest) Eyes: non-icteric ENT: oropharynx moist Neck: supple, no lymphadenopathy, no JVD Effort: normal Ascultation: Bilateral: rhonchi (few bilateral rhonchi.) Percussion: Bilateral: not dull Cardiovascular: regular rate and rhythm Gastrointestinal: normoactive bowel sounds, soft, non-tender, non-distended Integumentary: normal Extremities: no cyanosis, no edema, pulses normal, no ischemia or petechiae Neurologic: normal mental status, non-focal exam, pupils equal and round, CN II- XII normal Psychiatric: mood appropriate, affect normal CBC and BMP: 04/14/18 02:34 04/13/18 02:53 ABG, PT/INR, D-dimer: PT/INR, D-dimer PT 14.6 Sec. (12.2-14.9) 04/09/18 14:38 INR 1.10 (0.87-1.13) 04/09/18 14:38 Abnormal lab findings: Abnormal Labs 04/09/18 04/09/18 04/09/18 14:38 14:38 14:38 WBC 12.3 H RBC 3.61 L Hgb 11.1 L Hct 34.2 L MCV 95 H Lymph % (Auto) [place] % (Auto) Lymph # [place] # Seg Neutrophils % Seg Neutrophils # Sodium 135 L Potassium Carbon Dioxide BUN 5 L Creatinine 0.5 L Glucose 116 H Calcium Magnesium 1.50 L Albumin 04/10/18 04/10/18 04/11/18 05:08 05:08 05:02 WBC RBC 3.26 L Hgb 10.1 L Hct 30.8 L MCV Lymph % (Auto) 6.4 L [place] % (Auto) 12.8 H Lymph # 0.7 L [place] # 1.3 H Seg Neutrophils % 80.4 H Seg Neutrophils # 8.4 H Sodium 136 L Potassium 3.3 L 3.5 L Carbon Dioxide 21 L 20 L BUN 6 L 6 L Creatinine 0.5 L 0.4 L Glucose 128 H 107 H Calcium 8.1 L Magnesium Albumin 3.1 L 04/12/18 04/13/18 04/13/18 12:34 02:53 02:53 WBC RBC Hgb 9.3 L 8.5 L Hct 28.8 L 26.2 L MCV Lymph % (Auto) [place] % (Auto) Lymph # [place] # Seg Neutrophils % Seg Neutrophils # Sodium Potassium Carbon Dioxide BUN 5 L Creatinine 0.5 L Glucose Calcium Magnesium Albumin 04/14/18 02:34 WBC RBC Hgb 9.1 L Hct 28.0 L MCV Lymph % (Auto) [place] % (Auto) Lymph # [place] # Seg Neutrophils % Seg Neutrophils # Sodium Potassium Carbon Dioxide BUN Creatinine Glucose Calcium Magnesium Albumin Chest x-ray: report reviewed, image reviewed Additional Studies: Angio CT of chest done today 04/14/18 reported Focal consolidation within the lingula with small focus suggestive of acute contrast extravasation. This is smaller than on the previous study. Differential consideration includes neoplastic or inflammatory etiologies Allied health notes reviewed: nursing
--- NOTE | 2018-04-14 19:26 | Cat Scan Report ---
FINAL REPORT EXAM: CT ANGIO CHEST HISTORY: hemoptysis TECHNIQUE: CT chest CT angiogram with intravenous contrast PRIORS: Comparison is dated April 11, 2018 FINDINGS: Some prominent AP window lymph nodes measuring up to 2.2 x 0.84 centimeters. Heart great vessels are unremarkable. The aorta is normal in caliber no evidence for intimal flap to suggest dissection. No acute central pulmonary embolus identified. Again noted is focal consolidation which appears wedge-shaped within the lingula with areas of adjace nt interstitial prominence. Area of consolidation is similar to the prior exam. Within its inferior a spect there is a small focal pole of contrast which could reflect a dilated vessel or small vascular bleed. This is smaller in size than on the prior exam. No new pulmonary abnormalities identified. No acute findings in the visualized upper abdomen. IMPRESSION: Focal consolidation within the lingula with small focus suggestive of acute contrast extravasation. T his is smaller than on the previous study. Differential consideration includes neoplastic or inflamma tory etiologies Mild prominence of AP window lymph nodes noted
[2018-04-15] MEDS: DUONEB *Not for PRN Use IH SCH ×3 (07:21→20:05)
[2018-04-15] MEDS: PEPCID PO SCH ×2 (09:02→21:18)
[2018-04-15] MEDS: HARVONI PO SCH (09:02)
[2018-04-15] MEDS: RIBAVIRIN PO SCH ×2 (09:02→21:20)
[2018-04-15] MEDS: SODIUM CHLORIDE FLUSH SYRINGE 10 ML IV SCH ×2 (09:04→21:21)
[2018-04-15] MEDS: ROCEPHIN/NS 2 GM/100 ML 2 GM/100 ML BAG IV SCH (09:31)
--- NOTE | 2018-04-15 13:57 | Progress Note ---
Assessment and Plan Patient alert, awake. resting on room air.O2 saturation 94%.No complaint of chest pain,shortness of breath . No hemoptysis today.Patient has angio CT of chest. Waiting for interventional radiology recommendation for pulmonary artery embolization. - Patient Problems (1) Hemoptysis Current Visit: Yes Status: Acute Plan to address problem: No hemoptysis to day.. After reviewing Angio CT of chest, interventional radiology decide on pulmonary vascular congestion. (2) Pneumonia Current Visit: Yes Status: Acute Qualifiers: Laterality: left Plan to address problem: Patient is on ceftrioxone. (3) Cirrhosis Current Visit: Yes Status: Acute Plan to address problem: Management as per primary care. (4) Hx of hepatitis C Current Visit: Yes Status: Acute Plan to address problem: Management as per primary care. Subjective Date of service: 04/15/18 Principal diagnosis: Left lingular Mass / Pneumonia; Hemoptysis; Tobacco abuse ; Hepatitis C Interval history: Patient alert, awake. resting on room air.O2 saturation 94%.No complaint of chest pain,shortness of breath . No hemoptysis today.Patient has angio CT of chest. Waiting for interventional radiology recommendation for pulmonary artery embolization. Objective Vital Signs - 12hr 04/15/18 04/15/18 04/15/18 07:21 07:31 07:40 Temperature 97.6 F Pulse Rate 85 Pulse Rate [ 73 75 Anterior Bilateral Throughout] Pulse Rate [ Right From Monitor] Respiratory 18 Rate Respiratory 18 16 Rate [Anterior Bilateral Throughout] Blood Pressure 130/73 O2 Sat by Pulse 94 Oximetry 04/15/18 04/15/18 04/15/18 10:00 13:16 13:23 Temperature Pulse Rate Pulse Rate [ 83 84 Anterior Bilateral Throughout] Pulse Rate [ 85 Right From Monitor] Respiratory 18 Rate Respiratory 16 16 Rate [Anterior Bilateral Throughout] Blood Pressure O2 Sat by Pulse 94 Oximetry Constitutional: no acute distress, alert, other (elderly looking AAM normocephalic and atraumatic with normal resp effort at rest) Eyes: non-icteric ENT: oropharynx moist Neck: supple, no lymphadenopathy, no JVD Effort: normal Ascultation: Bilateral: clear, rhonchi (few bilateral rhonchi.) Percussion: Bilateral: not dull Cardiovascular: regular rate and rhythm Gastrointestinal: normoactive bowel sounds, soft, non-tender, non-distended Integumentary: normal Extremities: no cyanosis, no edema, pulses normal, no ischemia or petechiae Neurologic: normal mental status, non-focal exam, pupils equal and round, CN II- XII normal Psychiatric: mood appropriate, affect normal CBC and BMP: 04/14/18 02:34 04/13/18 02:53 ABG, PT/INR, D-dimer: PT/INR, D-dimer PT 14.6 Sec. (12.2-14.9) 04/09/18 14:38 INR 1.10 (0.87-1.13) 04/09/18 14:38 Abnormal lab findings: Abnormal Labs 04/09/18 04/09/18 04/09/18 14:38 14:38 14:38 WBC 12.3 H RBC 3.61 L Hgb 11.1 L Hct 34.2 L MCV 95 H Lymph % (Auto) [place] % (Auto) Lymph # [place] # Seg Neutrophils % Seg Neutrophils # Sodium 135 L Potassium Carbon Dioxide BUN 5 L Creatinine 0.5 L Glucose 116 H Calcium Magnesium 1.50 L Albumin 04/10/18 04/10/18 04/11/18 05:08 05:08 05:02 WBC RBC 3.26 L Hgb 10.1 L Hct 30.8 L MCV Lymph % (Auto) 6.4 L [place] % (Auto) 12.8 H Lymph # 0.7 L [place] # 1.3 H Seg Neutrophils % 80.4 H Seg Neutrophils # 8.4 H Sodium 136 L Potassium 3.3 L 3.5 L Carbon Dioxide 21 L 20 L BUN 6 L 6 L Creatinine 0.5 L 0.4 L Glucose 128 H 107 H Calcium 8.1 L Magnesium Albumin 3.1 L 04/12/18 04/13/18 04/13/18 12:34 02:53 02:53 WBC RBC Hgb 9.3 L 8.5 L Hct 28.8 L 26.2 L MCV Lymph % (Auto) [place] % (Auto) Lymph # [place] # Seg Neutrophils % Seg Neutrophils # Sodium Potassium Carbon Dioxide BUN 5 L Creatinine 0.5 L Glucose Calcium Magnesium Albumin 04/14/18 02:34 WBC RBC Hgb 9.1 L Hct 28.0 L MCV Lymph % (Auto) [place] % (Auto) Lymph # [place] # Seg Neutrophils % Seg Neutrophils # Sodium Potassium Carbon Dioxide BUN Creatinine Glucose Calcium Magnesium Albumin Additional Studies: ANGIO CT of chest done on 04/14/18 Focal consolidation within the lingula with small focus suggestive of acute contrast extravasation. This is smaller than on the previous study. Differential consideration includes neoplastic or inflammatory etiologies Mild prominence of AP window lymph nodes noted Allied health notes reviewed: nursing
--- NOTE | 2018-04-15 14:25 | Event Note ---
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 CTA demonstrates some decrease in size however. Additionally, there is denser consolidation around the area of the pseudoaneurysm. We'll set the patient up for pulmonary angiography as the patient does not have enlarged bronchial arteries. At that point in time, if there is the ability to close off the pseudoaneurysm it will be done so otherwise, would consider short close term follow-up versus referral to cardiothoracic surgeon.
--- NOTE | 2018-04-15 15:46 | Progress Note ---
Assessment and Plan Left lingular pneumonia - We'll continue to monitor the patient to medicine - Will provide scheduled nebulizer breathing treatment and as needed - cont on empiric antibiotic - Provide supplemental oxygen to keep oxygen saturation above 92% as needed - CT chest showed 5 x 6.2 x 6.6 centimeter masslike opacity in the lingula, per pulmonary malignancy less likely Hemoptysis, - Pulmonary consulted, recommended possible pulmonary artery embolization, CTA chest ordered - Repeat CTA showed there is denser consolidation around the area of the pseudoaneurysm. plan to set the patient up for pulmonary angiography and to close off the pseudoaneurysm , otherwise would need short close term follow-up versus referral to cardiothoracic surgeon. History of hepatitis C being treated with hervoni Hypomagnesemia, supplemented Hypertension, not on any medications at home - Monitor BP, add medications as needed Anemia, likely chronic and due to blood loss - Continue to monitor H&H Hyponatremia mild, continue gentle hydration with IV fluid Tobacco/alcohol abuse, counseled for cessation, monitor for withdrawal DVT prophylaxis with SCD GI prophylaxis with PPI Brief history: 67-year-old male with history of hepatitis C presented to the hospital with complaint of 1 week of cough and bloody sputum. Chest x-ray in the ER showed lingular pneumonia, admitted to the hospital for further evaluation and management. Radiological data: CXR: Lingular opacity as described. If no fever is present, further evaluation with CT chest with contrast is recommended. CT chest: 5 x 6.2 x 6.6 centimeter masslike opacity in the lingula, with internal areas of possible cavitation and a focus of active extravasation of contrast concerning for hemorrhage. Differential diagnosis includes malignancy, atypical infections such is tuberculosis or fungal infection, or vasculitis. Recommend clinical correlation. A consult with interventional radiology may be helpful to evaluate the source of the active extravasation. Subjective Date of service: 04/15/18 Principal diagnosis: Left lingular Mass / Pneumonia; Hemoptysis; Tobacco abuse ; Hepatitis C Interval history: Patient seen and examined. Medical records and medication list reviewed. No acute event overnight noted by the RN. Patient denies any chest pain or difficulty breathing. Patient is tolerating diet. Continue to cough out small amount of blood, Discussed plan of care at bedside with patient. Objective - Exam Narrative Exam: GENERAL: well-developed and well-nourished -[place] male lying on bed appeared to be in no discomfort. HEENT: Normocephalic. Atraumatic. No conjunctival congestion or icterus. Patient has moist mucous membranes. NECK: Supple. Trachea midline. CHEST/LUNGS: Clear to auscultated bilaterally, breathing nonlabored. No wheezes crackles or rhonchi. HEART/CARDIOVASCULAR: Regular in rate and rhythm. S1 and S2 positive. ABDOMEN: Abdomen is soft, nontender. Patient has normal bowel sounds. SKIN: There is no rash. Warm and dry. NEURO: No focal motor deficit. Follows command. MUSCULOSKELETAL: No joint effusion or tenderness. EXTRIMITY: No edema, no cyanosis or clubbing. PSYCH: Cooperative. - Constitutional Vitals: Vital Signs - 12hr 04/15/18 04/15/18 04/15/18 07:21 07:31 07:40 Temperature 97.6 F Pulse Rate 85 Pulse Rate [ 73 75 Anterior Bilateral Throughout] Pulse Rate [ Right From Monitor] Respiratory 18 Rate Respiratory 18 16 Rate [Anterior Bilateral Throughout] Blood Pressure 130/73 O2 Sat by Pulse 94 Oximetry 04/15/18 04/15/18 04/15/18 10:00 13:16 13:23 Temperature Pulse Rate Pulse Rate [ 83 84 Anterior Bilateral Throughout] Pulse Rate [ 85 Right From Monitor] Respiratory 18 Rate Respiratory 16 16 Rate [Anterior Bilateral Throughout] Blood Pressure O2 Sat by Pulse 94 Oximetry 04/15/18 13:29 Temperature 98.0 F Pulse Rate 93 H Pulse Rate [ Anterior Bilateral Throughout] Pulse Rate [ Right From Monitor] Respiratory 18 Rate Respiratory Rate [Anterior Bilateral Throughout] Blood Pressure 127/76 O2 Sat by Pulse 96 Oximetry - Labs CBC & Chem 7: 04/14/18 02:34 04/13/18 02:53
--- NOTE | 2018-04-16 08:06 | Progress Note ---
Assessment and Plan Patient alert, awake. resting on room air.O2 saturation 98%.No complaint of chest pain,shortness of breath . Patient has episode of small amount of hemotysis again to day.Patient has angio CT of chest. Interventional radiology planning pulmonary angiogram. - Patient Problems (1) Hemoptysis Current Visit: Yes Status: Acute Plan to address problem: No hemoptysis to day.. Interventional radiology planning pulmonary angiogram. (2) Pneumonia Current Visit: Yes Status: Acute Qualifiers: Laterality: left Plan to address problem: Patient is on ceftrioxone. (3) Cirrhosis Current Visit: Yes Status: Acute Plan to address problem: Management as per primary care. (4) Hx of hepatitis C Current Visit: Yes Status: Acute Plan to address problem: Management as per primary care. Subjective Date of service: 04/16/18 Principal diagnosis: Left lingular Mass / Pneumonia; Hemoptysis; Tobacco abuse ; Hepatitis C Interval history: Patient alert, awake. resting on room air.O2 saturation 98%.No complaint of chest pain,shortness of breath . Patient has episode of small amount of hemotysis again to day.Patient has angio CT of chest. Interventional radiology planning pulmonary angiogram. Objective Vital Signs - 12hr 04/15/18 04/15/18 04/15/18 20:05 20:08 22:00 Temperature Pulse Rate Pulse Rate [ 78 Anterior Bilateral Throughout] Pulse Rate [ 78 Right From Monitor] Respiratory 18 Rate Respiratory 18 Rate [Anterior Bilateral Throughout] Blood Pressure [Right] O2 Sat by Pulse 100 100 Oximetry 04/16/18 04/16/18 02:00 02:14 Temperature 98 F Pulse Rate 79 76 Pulse Rate [ Anterior Bilateral Throughout] Pulse Rate [ Right From Monitor] Respiratory 18 Rate Respiratory Rate [Anterior Bilateral Throughout] Blood Pressure 128/82 [Right] O2 Sat by Pulse 94 98 Oximetry Constitutional: no acute distress, alert, other (elderly looking AAM normocephalic and atraumatic with normal resp effort at rest) Eyes: non-icteric ENT: oropharynx moist Neck: supple, no lymphadenopathy, no JVD Effort: normal Ascultation: Bilateral: rhonchi (few bilateral rhonchi.) Percussion: Bilateral: not dull Cardiovascular: regular rate and rhythm Gastrointestinal: normoactive bowel sounds, soft, non-tender, non-distended Integumentary: normal Extremities: no cyanosis, no edema, pulses normal, no ischemia or petechiae Neurologic: normal mental status, non-focal exam, pupils equal and round, CN II- XII normal Psychiatric: mood appropriate, affect normal CBC and BMP: 04/14/18 02:34 04/13/18 02:53 ABG, PT/INR, D-dimer: PT/INR, D-dimer PT 14.6 Sec. (12.2-14.9) 04/09/18 14:38 INR 1.10 (0.87-1.13) 04/09/18 14:38 Abnormal lab findings: Abnormal Labs 04/09/18 04/09/18 04/09/18 14:38 14:38 14:38 WBC 12.3 H RBC 3.61 L Hgb 11.1 L Hct 34.2 L MCV 95 H Lymph % (Auto) [place] % (Auto) Lymph # [place] # Seg Neutrophils % Seg Neutrophils # Sodium 135 L Potassium Carbon Dioxide BUN 5 L Creatinine 0.5 L Glucose 116 H Calcium Magnesium 1.50 L Albumin 04/10/18 04/10/18 04/11/18 05:08 05:08 05:02 WBC RBC 3.26 L Hgb 10.1 L Hct 30.8 L MCV Lymph % (Auto) 6.4 L [place] % (Auto) 12.8 H Lymph # 0.7 L [place] # 1.3 H Seg Neutrophils % 80.4 H Seg Neutrophils # 8.4 H Sodium 136 L Potassium 3.3 L 3.5 L Carbon Dioxide 21 L 20 L BUN 6 L 6 L Creatinine 0.5 L 0.4 L Glucose 128 H 107 H Calcium 8.1 L Magnesium Albumin 3.1 L 04/12/18 04/13/18 04/13/18 12:34 02:53 02:53 WBC RBC Hgb 9.3 L 8.5 L Hct 28.8 L 26.2 L MCV Lymph % (Auto) [place] % (Auto) Lymph # [place] # Seg Neutrophils % Seg Neutrophils # Sodium Potassium Carbon Dioxide BUN 5 L Creatinine 0.5 L Glucose Calcium Magnesium Albumin 04/14/18 02:34 WBC RBC Hgb 9.1 L Hct 28.0 L MCV Lymph % (Auto) [place] % (Auto) Lymph # [place] # Seg Neutrophils % Seg Neutrophils # Sodium Potassium Carbon Dioxide BUN Creatinine Glucose Calcium Magnesium Albumin Allied health notes reviewed: nursing
[2018-04-16] MEDS: DUONEB *Not for PRN Use IH SCH ×3 (08:30→21:46)
[2018-04-16] MEDS: RIBAVIRIN PO SCH ×2 (09:07→22:51)
[2018-04-16] MEDS: HARVONI PO SCH (09:07)
[2018-04-16] MEDS: PEPCID PO SCH ×2 (09:08→22:50)
[2018-04-16] MEDS: ROCEPHIN/NS 2 GM/100 ML 2 GM/100 ML BAG IV SCH (09:08)
[2018-04-16] MEDS: SODIUM CHLORIDE FLUSH SYRINGE 10 ML IV SCH (09:09)
--- NOTE | 2018-04-16 10:38 | Progress Note ---
Assessment and Plan Left lingular infiltrate Hemoptysis, cannot rule out malignancy Tobacco abuse disorder/Nicotine dependence History of hepatitis C Anemia, likely chronic/ABLA Hyponatremia mild -Follow up on CT chest -Empiric antibiotics, follow cultures and adjust antibiotic therapy -Bronchodilators prn -Nicotine withdrawal precautions -Monitor closely for possibility of massive hemoptysis If he has sub-massive or massive hemoptysis, may need airway protection and IR for embolization -Supplemental oxygen to keep O2 sats>90% -Aspiration precautions -Smoking cessation counselling done at the bedside ( ongoing) -SCDs for VTE prophylaxis -Influenza and pneumonia vaccination per protocol Subjective Date of service: 04/16/18 Principal diagnosis: Left lingular Mass / Pneumonia; Hemoptysis; Tobacco abuse ; Hepatitis C Interval history: Follow up: Lingular infiltrate, Hemoptysis, Tobacco abuse disorder Seen and examined. Vitals, labs, medications, chart reviewed. No acute overnight events reported States he has not had any further episodes of hemoptysis today. No chest pain, no shortness of breath No fevers or chills. Appetite is "good", Objective Vital Signs - 12hr 04/16/18 04/16/18 04/16/18 02:00 02:14 08:30 Temperature 98 F Pulse Rate 79 76 Pulse Rate [ 77 Anterior Bilateral Throughout] Pulse Rate [ Right From Monitor] Respiratory 18 Rate Respiratory 18 Rate [Anterior Bilateral Throughout] Blood Pressure Blood Pressure 128/82 [Right] O2 Sat by Pulse 94 98 Oximetry 04/16/18 04/16/18 04/16/18 08:38 08:44 10:00 Temperature 97.8 F Pulse Rate 83 Pulse Rate [ 84 Anterior Bilateral Throughout] Pulse Rate [ 83 Right From Monitor] Respiratory 20 18 Rate Respiratory 18 Rate [Anterior Bilateral Throughout] Blood Pressure 151/84 Blood Pressure [Right] O2 Sat by Pulse 97 97 Oximetry Constitutional: no acute distress, alert, other (elderly looking AAM normocephalic and atraumatic with normal resp effort at rest) Eyes: non-icteric ENT: oropharynx moist Neck: supple, no lymphadenopathy, no JVD Effort: normal Ascultation: Bilateral: clear, rhonchi (few bilateral rhonchi.) Percussion: Bilateral: not dull Cardiovascular: regular rate and rhythm Gastrointestinal: normoactive bowel sounds, soft, non-tender, non-distended Integumentary: normal Extremities: no cyanosis, no edema, pulses normal, no ischemia or petechiae Neurologic: normal mental status, non-focal exam, pupils equal and round, CN II- XII normal Psychiatric: mood appropriate, affect normal CBC and BMP: 04/14/18 02:34 04/13/18 02:53 ABG, PT/INR, D-dimer: PT/INR, D-dimer PT 14.6 Sec. (12.2-14.9) 04/09/18 14:38 INR 1.10 (0.87-1.13) 04/09/18 14:38 Abnormal lab findings: Abnormal Labs 04/09/18 04/09/18 04/09/18 14:38 14:38 14:38 WBC 12.3 H RBC 3.61 L Hgb 11.1 L Hct 34.2 L MCV 95 H Lymph % (Auto) [place] % (Auto) Lymph # [place] # Seg Neutrophils % Seg Neutrophils # Sodium 135 L Potassium Carbon Dioxide BUN 5 L Creatinine 0.5 L Glucose 116 H Calcium Magnesium 1.50 L Albumin 04/10/18 04/10/18 04/11/18 05:08 05:08 05:02 WBC RBC 3.26 L Hgb 10.1 L Hct 30.8 L MCV Lymph % (Auto) 6.4 L [place] % (Auto) 12.8 H Lymph # 0.7 L [place] # 1.3 H Seg Neutrophils % 80.4 H Seg Neutrophils # 8.4 H Sodium 136 L Potassium 3.3 L 3.5 L Carbon Dioxide 21 L 20 L BUN 6 L 6 L Creatinine 0.5 L 0.4 L Glucose 128 H 107 H Calcium 8.1 L Magnesium Albumin 3.1 L 04/12/18 04/13/18 04/13/18 12:34 02:53 02:53 WBC RBC Hgb 9.3 L 8.5 L Hct 28.8 L 26.2 L MCV Lymph % (Auto) [place] % (Auto) Lymph # [place] # Seg Neutrophils % Seg Neutrophils # Sodium Potassium Carbon Dioxide BUN 5 L Creatinine 0.5 L Glucose Calcium Magnesium Albumin 04/14/18 02:34 WBC RBC Hgb 9.1 L Hct 28.0 L MCV Lymph % (Auto) [place] % (Auto) Lymph # [place] # Seg Neutrophils % Seg Neutrophils # Sodium Potassium Carbon Dioxide BUN Creatinine Glucose Calcium Magnesium Albumin Allied health notes reviewed: nursing
--- NOTE | 2018-04-16 14:05 | Progress Note ---
Assessment and Plan Left lingular pneumonia - We'll continue to monitor the patient to medicine - Will provide scheduled nebulizer breathing treatment and as needed - cont on empiric antibiotic - Provide supplemental oxygen to keep oxygen saturation above 92% as needed - CT chest showed 5 x 6.2 x 6.6 centimeter masslike opacity in the lingula, per pulmonary malignancy less likely Hemoptysis, - Pulmonary consulted, recommended possible pulmonary artery embolization, CTA chest ordered - Repeat CTA showed there is denser consolidation around the area of the pseudoaneurysm. plan for pulmonary angiography today and to close off the pseudoaneurysm if any, otherwise would need short close term follow-up versus referral to cardiothoracic surgeon. History of hepatitis C being treated with hervoni Hypomagnesemia, supplemented Hypertension, not on any medications at home - Monitor BP, add medications as needed Anemia, likely chronic and due to blood loss - Continue to monitor H&H Hyponatremia mild, continue gentle hydration with IV fluid Tobacco/alcohol abuse, counseled for cessation, monitor for withdrawal DVT prophylaxis with SCD GI prophylaxis with PPI Brief history: 67-year-old male with history of hepatitis C presented to the hospital with complaint of 1 week of cough and bloody sputum. Chest x-ray in the ER showed lingular pneumonia, admitted to the hospital for further evaluation and management. Radiological data: CXR: Lingular opacity as described. If no fever is present, further evaluation with CT chest with contrast is recommended. CT chest: 5 x 6.2 x 6.6 centimeter masslike opacity in the lingula, with internal areas of possible cavitation and a focus of active extravasation of contrast concerning for hemorrhage. Differential diagnosis includes malignancy, atypical infections such is tuberculosis or fungal infection, or vasculitis. Recommend clinical correlation. A consult with interventional radiology may be helpful to evaluate the source of the active extravasation. Subjective Date of service: 04/16/18 Principal diagnosis: Left lingular Mass / Pneumonia; Hemoptysis; Tobacco abuse ; Hepatitis C Interval history: Patient seen and examined. Medical records and medication list reviewed. No acute event overnight noted by the RN. Patient denies any chest pain or difficulty breathing. Patient is tolerating diet. Continue to cough but states no visible blood, plan for pulmonary artery cath today Discussed plan of care at bedside with patient. Objective - Exam Narrative Exam: GENERAL: well-developed and well-nourished -Italian male lying on bed appeared to be in no discomfort. HEENT: Normocephalic. Atraumatic. No conjunctival congestion or icterus. Patient has moist mucous membranes. NECK: Supple. Trachea midline. CHEST/LUNGS: Clear to auscultated bilaterally, breathing nonlabored. No wheezes crackles or rhonchi. HEART/CARDIOVASCULAR: Regular in rate and rhythm. S1 and S2 positive. ABDOMEN: Abdomen is soft, nontender. Patient has normal bowel sounds. SKIN: There is no rash. Warm and dry. NEURO: No focal motor deficit. Follows command. MUSCULOSKELETAL: No joint effusion or tenderness. EXTRIMITY: No edema, no cyanosis or clubbing. PSYCH: Cooperative. - Constitutional Vitals: Vital Signs - 12hr 04/16/18 04/16/18 04/16/18 02:14 08:30 08:38 Temperature Pulse Rate 76 Pulse Rate [ 77 84 Anterior Bilateral Throughout] Pulse Rate [ Right From Monitor] Respiratory Rate Respiratory 18 18 Rate [Anterior Bilateral Throughout] Blood Pressure O2 Sat by Pulse 98 Oximetry 04/16/18 04/16/18 08:44 10:00 Temperature 97.8 F Pulse Rate 83 Pulse Rate [ Anterior Bilateral Throughout] Pulse Rate [ 83 Right From Monitor] Respiratory 20 18 Rate Respiratory Rate [Anterior Bilateral Throughout] Blood Pressure 151/84 O2 Sat by Pulse 97 97 Oximetry - Labs CBC & Chem 7: 04/17/18 05:32 04/17/18 05:32
[2018-04-16] MEDS ORDERED: HEPARIN 10,000 UNITS/10 ML ONE (14:23)
[2018-04-16] MEDS ORDERED: HEPARIN/NS 5000 UNIT/500ML(CATH LAB) 1,000 ML IR ONE (14:23)
[2018-04-16] MEDS ORDERED: SUBLIMAZE ONE (14:24)
[2018-04-16] MEDS ORDERED: XYLOCAINE 2% INFILTRATI ONE (14:24)
[2018-04-16] MEDS ORDERED: VERSED ONE (14:24)
[2018-04-16] MEDS ORDERED: NACL 0.9% 500 ML 500 ML ONE (14:35)
--- NOTE | 2018-04-16 15:16 | Operative Report ---
Operative Report Operative Report: Exam: Pulmonary angiography Clinical indication: Patient with a history of left lingular consolidation and pseudoaneurysm with decreasing size on serial CT Date: 04/16/2018 Procedure: Following an explanation of the risks, benefits and alternatives; written informed consent was obtained. The patient was brought into the angiographic suite and placed in supine position on the examination table. Initial ultrasound evaluation of his right groin demonstrated a patent right common femoral vein. The patient's right groin was prepped and draped in usual sterile fashion. 1% lidocaine was used for anesthesia. Under ultrasound guidance, the right common femoral vein was cannulated with a 7 cm 18-gauge needle. A 0.035 guidewire was advanced centrally. The needle was removed and a 5 Turkmen sheath placed. A 5 Turkmen JR 4 catheter was then advanced over the guidewire. Together the guidewire and catheter were advanced under fluoroscopy to the right atrium. The guidewire and catheter were then manipulated into the right ventricle and into the pulmonary outflow tract. The guidewire and catheter were then manipulated into the left main pulmonary artery and left lingular artery. Angiography was performed at this point in multiple obliquities and demonstrated no evidence of contrast extravasation to suggest persistent pseudoaneurysm. The catheter was then withdrawn proximally into left main pulmonary artery and additional angiography performed. No evidence of contrast extravasation to suggest pseudoaneurysm was again verified. The guidewire was inserted to the catheter and together the catheter and guidewire withdrawn through the sheath. The sheath was then removed and hemostasis achieved using manual compression. A sterile dressing was applied. The patient tolerated the procedure well. There were no immediate post procedure complications. Conscious sedation was performed under the guidance of radiologic nursing. Continuous cardiopulmonary monitoring was utilized. Impression: Pulmonary angiography of the left main pulmonary artery and left lingular artery demonstrating no evidence of pseudoaneurysm.
--- NOTE | 2018-04-16 15:24 | Progress Note ---
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 The pseudoaneurysm has decreased in size on serial CT and his nonvisible through left pulmonary angiography. The bronchial arteries are diminutive. The pseudoaneurysm may arise from either diminutive right heel arteries or the veins. There does not appear to be pulmonary arterial involvement. The patient will need to have a repeat CTA of the chest in 1 week area in addition, would recommend referral to a cardiothoracic surgeon. Subjective Date of service: 04/16/18 Principal diagnosis: Left lingular Mass / Pneumonia; Hemoptysis; Tobacco abuse ; Hepatitis C Interval history: Patient with a history of hemoptysis with blood streaking sputum that has decreased in appearance during his hospitalization. He underwent serial CTs of his chest which demonstrated a decrease in size of his left lingular pseudoaneurysm. His most recent CT showed consolidation of the lingula. Today, the patient underwent pulmonary angiography about the lingular artery as well as the left main pulmonary artery with no evidence of pulmonary artery involvement in the pseudoaneurysm. On the patient's CTA, his bronchial arteries are not dilated. Objective - Constitutional Vitals: Vital Signs - 12hr 04/16/18 04/16/18 04/16/18 08:30 08:38 08:44 Temperature 97.8 F Pulse Rate 83 Pulse Rate [ 77 84 Anterior Bilateral Throughout] Pulse Rate [ Right From Monitor] Respiratory 20 Rate Respiratory 18 18 Rate [Anterior Bilateral Throughout] Blood Pressure 151/84 O2 Sat by Pulse 97 Oximetry 04/16/18 10:00 Temperature Pulse Rate Pulse Rate [ Anterior Bilateral Throughout] Pulse Rate [ 83 Right From Monitor] Respiratory 18 Rate Respiratory Rate [Anterior Bilateral Throughout] Blood Pressure O2 Sat by Pulse 97 Oximetry General appearance: Present: no acute distress - EENT Eyes: EOM intact ENT: hearing intact - Neck Neck: supple - Respiratory Respiratory effort: normal - Breasts Breasts: deferred - Cardiovascular Rhythm: regular Extremities: no ischemia - Gastrointestinal General gastrointestinal: Present: deferred Rectal Exam: deferred - Genitourinary Male genitourinary: deferred - Psychiatric Psychiatric: appropriate mood/affect, cooperative - Labs CBC & Chem 7: 04/14/18 02:34 04/13/18 02:53 Medications & Allergies - Medications Allergies/Adverse Reactions: Allergies No Known Allergies Allergy (Unverified 04/09/18 13:01) Home Medications: Home Medications Medication Instructions Recorded Confirmed Last Taken Type Harvoni 90-400 mg Tablet 90 mg PO DAILY 04/09/18 04/09/18 04/06/18 History Ribavirin 200 mg PO BID 04/09/18 04/09/18 04/06/18 08:00 History Active Medications: Generic Name Dose Route Start Last Admin Trade Name Ahmet PRN Reason Stop Dose Admin Acetaminophen 650 mg 04/09/18 22:12 04/10/18 14:11 Tylenol PO 650 mg Q4H PRN Administration Pain MILD(1-3)/Fever >100.5/TENA Albuterol/Ipratropium 1 ampul 04/12/18 14:00 04/16/18 14:10 Duoneb *Not For Prn Use* IH Not Given TIDRT RAJ Famotidine 20 mg 04/12/18 10:00 04/16/18 09:08 Pepcid PO 20 mg BID RAJ Administration Hydromorphone HCl 0.5 mg 04/09/18 22:12 Dilaudid IV Q3H PRN Pain , Severe (7-10) Ceftriaxone Sodium 2 gm in 100 mls @ 200 mls/hr 04/09/18 15:30 04/16/18 09:08 Rocephin/Ns 2 Gm/100 Ml IV 200 mls/hr Q24HR RAJ Administration Protocol Ondansetron HCl 4 mg 04/09/18 22:12 04/11/18 02:43 Zofran IV 4 mg Q8H PRN Administration Nausea And Vomiting Oxycodone/Acetaminophen 1 tab 04/09/18 22:12 Percocet 5/325 PO Q6H PRN Pain, Moderate (4-6) Ribavirin 200 mg 04/14/18 10:00 04/16/18 09:07 Ribavirin (Nf) PO 200 mg BID RAJ Administration Sodium Chloride 10 ml 04/10/18 10:00 04/16/18 09:09 Sodium Chloride Flush Syringe 10 Ml IV 10 ml BID RAJ Administration Sodium Chloride 10 ml 04/09/18 22:12 Sodium Chloride Flush Syringe 10 Ml IV PRN PRN LINE FLUSH
[2018-04-17 06:28] LABS: Hematocrit 29.8 % (35.5-45.6); Hemoglobin 9.8 gm/dl (11.8-15.2)
[2018-04-17 06:38] LABS: BUN/Creatinine Ratio 12; Blood Urea Nitrogen 6 mg/dL (9-20); Calcium 9.1 mg/dL (8.4-10.2); Hemolysis Index 6
[2018-04-17] MEDS: DUONEB *Not for PRN Use IH SCH ×2 (07:19→14:39)
[2018-04-17 09:45] VITALS: BP 136/74
[2018-04-17] MEDS: ROCEPHIN/NS 2 GM/100 ML 2 GM/100 ML BAG IV SCH (09:53)
[2018-04-17] MEDS: PEPCID PO SCH (09:54)
[2018-04-17] MEDS: RIBAVIRIN PO SCH (09:54)
[2018-04-17] MEDS: SODIUM CHLORIDE FLUSH SYRINGE 10 ML IV SCH (09:54)
[2018-04-17] MEDS: HARVONI PO SCH (09:54)
--- NOTE | 2018-04-17 10:50 | Discharge Summary ---
Providers - Providers Date of Admission: 04/09/18 15:36 Date of discharge: 04/17/18 Attending physician: PEDRO FERNÁNDEZ 04/09/18 22:12 Consult to Physician [CONS] Routine Comment: Consulting Provider: YESENIA RANDLE Physician Instructions: Reason For Exam: PNA Primary care physician: RIGGING FOREMAN Hospitalization Condition: Stable Pertinent studies: Radiological data: CXR: Lingular opacity as described. CT chest: 5 x 6.2 x 6.6 centimeter masslike opacity in the lingula, with internal areas of possible cavitation and a focus of active extravasation of contrast concerning for hemorrhage. Differential diagnosis includes malignancy, atypical infections such is tuberculosis or fungal infection, or vasculitis. Recommend clinical correlation. A consult with interventional radiology may be helpful to evaluate the source of the active extravasation. CTA chest: Focal consolidation within the lingula with small focus suggestive of acute contrast extravasation. This is smaller than on the previous study. Differential consideration includes neoplastic or inflammatory etiologies. Mild prominence of AP window lymph nodes noted. Hospital course: Brief history: 67-year-old male with history of hepatitis C presented to the hospital with complaint of 1 week of cough and bloody sputum. Chest x-ray in the ER showed lingular pneumonia, admitted to the hospital for further evaluation and management. Discharge diagnosis and management: Left lingular pneumonia - Provideed scheduled nebulizer breathing treatment and as needed - placed on empiric antibiotic - Provide supplemental oxygen to keep oxygen saturation above 92% as needed - CT chest showed 5 x 6.2 x 6.6 centimeter masslike opacity in the lingula, per pulmonary malignancy less likely, recommended to complete treatment for PNA and outpt followup Hemoptysis, - Pulmonary consulted, recommended possible pulmonary artery embolization as Ct chest showed active extravagation of contrast concerning for hemorrhage, CTA chest ordered. Repeat CTA showed there is denser consolidation around the area of the pseudoaneurysm. s/p pulmonary angiography on 04/16/18 showed no pseudoaneurysm, recommended to follow-up with repeat CT chest in one week and referral to cardiothoracic surgeon outpt. History of hepatitis C being treated with hervoni Hypomagnesemia, supplemented Hypertension, not on any medications at home - Monitored BP, stable Anemia, likely chronic and due to blood loss - monitored H&H, stable Hyponatremia mild, continue gentle hydration with IV fluid Tobacco/alcohol abuse, counseled for cessation, monitor for withdrawal DVT prophylaxis with SCD GI prophylaxis with PPI Physical exam GENERAL: well-developed and well-nourished -[place]ian male lying on bed appeared to be in no discomfort. HEENT: Normocephalic. Atraumatic. No conjunctival congestion or icterus. Patient has moist mucous membranes. NECK: Supple. Trachea midline. CHEST/LUNGS: Clear to auscultated bilaterally, breathing nonlabored. No wheezes crackles or rhonchi. HEART/CARDIOVASCULAR: Regular in rate and rhythm. S1 and S2 positive. ABDOMEN: Abdomen is soft, nontender. Patient has normal bowel sounds. SKIN: There is no rash. Warm and dry. NEURO: No focal motor deficit. Follows command. MUSCULOSKELETAL: No joint effusion or tenderness. EXTRIMITY: No edema, no cyanosis or clubbing. PSYCH: Cooperative. Disposition: DC-01 TO HOME OR SELFCARE Time spent for discharge: 34 minutes Core Measure Documentation - Palliative Care Palliative Care/ Comfort Measures: Not Applicable - Core Measures Any of the following diagnoses?: none Exam - Constitutional Vitals: Temp Pulse Resp BP Pulse Ox 97.8 F 82 18 136/74 98 04/17/18 07:49 04/17/18 07:49 04/17/18 07:49 04/17/18 07:49 04/17/18 07:49 Plan Activity: advance as tolerated Weight Bearing Status: Partial Weight Bearing Diet: low fat, low salt Additional Instructions: f/u CT chest in one week Follow up with: SAURABH TAPIA MD [Primary Care Provider] - 3-5 Days YESENIA RANDLE MD [Staff Physician] - 7 Days Prescriptions: ALBUTEROL Inhaler(NF) [VENTOLIN Inhaler(NF)] 1 puff IH Q4H 30 Days inha levoFLOXacin [Levaquin] 750 mg PO QDAY #2 tablet
--- NOTE | 2018-04-17 13:28 | Progress Note ---
Assessment and Plan Left lingular infiltrate Hemoptysis, cannot rule out malignancy Tobacco abuse disorder/Nicotine dependence History of hepatitis C Anemia, likely chronic/ABLA Hyponatremia mild - s/p IR intervention - complete empiric antibiotics and follow cultures - continue bronchodilators prn - continue Nicotine withdrawal precautions (tobacco abstinence again strongly counselled) - Supplemental oxygen as needed to keep O2 sats>90% - Aspiration precautions - Smoking cessation counselling done at the bedside (ongoing) - SCDs for VTE prophylaxis - Influenza and pneumonia vaccination per protocol - discharge planning ok with outpatient pulmonary clinic f/up ... will re-evaluate in am & prn Subjective Date of service: 04/17/18 Principal diagnosis: Left lingular Mass / Pneumonia; Hemoptysis; Tobacco abuse ; Hepatitis C Interval history: Patient is seen today for: Left lingular Mass; Hemoptysis; Tobacco abuse disorder/Nicotine dependence; History of hepatitis C Seen and examined at bedside; 24hour events reviewed; nursing and respiratory care staff consulted; no adverse overnight events reported to me; resting peacefully in bed; s/p pulonary angiography with reported decrease in size of lingula pseudoaneurysm; hemoptysis improving Objective Vital Signs - 12hr 04/17/18 04/17/18 04/17/18 01:39 07:19 07:30 Temperature 98.1 F Pulse Rate 85 Pulse Rate [ 71 76 Anterior Bilateral Throughout] Respiratory 20 Rate Respiratory 18 18 Rate [Anterior Bilateral Throughout] Blood Pressure 116/73 O2 Sat by Pulse 95 Oximetry 04/17/18 07:49 Temperature 97.8 F Pulse Rate 82 Pulse Rate [ Anterior Bilateral Throughout] Respiratory 18 Rate Respiratory Rate [Anterior Bilateral Throughout] Blood Pressure 136/74 O2 Sat by Pulse 98 Oximetry Constitutional: no acute distress, other (elderly looking AAM normocephalic and atraumatic with normal resp effort at rest) Eyes: non-icteric ENT: oropharynx moist Neck: supple, no lymphadenopathy, no JVD Effort: normal Ascultation: Bilateral: clear, rhonchi (few bilateral rhonchi.) Percussion: Bilateral: not dull Cardiovascular: regular rate and rhythm Gastrointestinal: normoactive bowel sounds, soft, non-tender, non-distended Integumentary: normal Extremities: no cyanosis, no edema, pulses normal, no ischemia or petechiae Neurologic: normal mental status, non-focal exam, pupils equal and round, CN II- XII normal Psychiatric: mood appropriate, affect normal CBC and BMP: 04/17/18 05:32 04/17/18 05:32 ABG, PT/INR, D-dimer: PT/INR, D-dimer PT 14.6 Sec. (12.2-14.9) 04/09/18 14:38 INR 1.10 (0.87-1.13) 04/09/18 14:38 Abnormal lab findings: Abnormal Labs 04/09/18 04/09/18 04/09/18 14:38 14:38 14:38 WBC 12.3 H RBC 3.61 L Hgb 11.1 L Hct 34.2 L MCV 95 H Lymph % (Auto) [place] % (Auto) Lymph # [place] # Seg Neutrophils % Seg Neutrophils # Sodium 135 L Potassium Carbon Dioxide BUN 5 L Creatinine 0.5 L Glucose 116 H Calcium Magnesium 1.50 L Albumin 04/10/18 04/10/18 04/11/18 05:08 05:08 05:02 WBC RBC 3.26 L Hgb 10.1 L Hct 30.8 L MCV Lymph % (Auto) 6.4 L [place] % (Auto) 12.8 H Lymph # 0.7 L [place] # 1.3 H Seg Neutrophils % 80.4 H Seg Neutrophils # 8.4 H Sodium 136 L Potassium 3.3 L 3.5 L Carbon Dioxide 21 L 20 L BUN 6 L 6 L Creatinine 0.5 L 0.4 L Glucose 128 H 107 H Calcium 8.1 L Magnesium Albumin 3.1 L 04/12/18 04/13/18 04/13/18 12:34 02:53 02:53 WBC RBC Hgb 9.3 L 8.5 L Hct 28.8 L 26.2 L MCV Lymph % (Auto) [place] % (Auto) Lymph # [place] # Seg Neutrophils % Seg Neutrophils # Sodium Potassium Carbon Dioxide BUN 5 L Creatinine 0.5 L Glucose Calcium Magnesium Albumin 04/14/18 04/17/18 04/17/18 02:34 05:32 05:32 WBC RBC Hgb 9.1 L 9.8 L Hct 28.0 L 29.8 L MCV Lymph % (Auto) [place] % (Auto) Lymph # [place] # Seg Neutrophils % Seg Neutrophils # Sodium Potassium Carbon Dioxide BUN 6 L Creatinine 0.5 L Glucose Calcium Magnesium Albumin Allied health notes reviewed: nursing
== END 2018-04-17 11:40 | disposition home or self-care (01) | DRG 871 ==
LOC: ED 12:47 → 2B-ACE 15:36 → EDBD 15:36
PROVIDERS: ADMIT Internal Medicine; ATTEND Internal Medicine
PROC: B31TZZZ Fluoroscopy of Left Pulmonary Artery (ICD-10-PCS; principal; 2018-04-16)
DX: A41.9 Sepsis, unspecified organism (principal); J18.9 Pneumonia, unspecified organism; E87.1 Hypo-osmolality and hyponatremia; K74.60 Unspecified cirrhosis of liver; B19.20 Unspecified viral hepatitis C without hepatic coma; D50.0 Iron deficiency anemia secondary to blood loss (chronic); Z71.6 Tobacco abuse counseling; F10.10 Alcohol abuse, uncomplicated; Z71.41 Alcohol abuse counseling and surveillance of alcoholic; E83.42 Hypomagnesemia; D64.9 Anemia, unspecified; F17.200 Nicotine dependence, unspecified, uncomplicated
CPT/HCPCS: 36014; 36015; 36415; 71046; 71270; 71275; 75741; 80048; 80053; 82140; 82805; 83036; 83735; 85014; 85018; 85025; 85027; 85610; 85730; 87040; 87070; 87205; 93005; 93010; 94640; 96374; 96375; G0378; C1769; C1887; J0456; J0696; J1644; J2250; J2405; J3010; J3475; J7030; J7040; J7050; Q9967